=== PATIENT | male | born 1980 | race Caucasian/White ===

== ENCOUNTER 2016-06-28 09:52 | Emergency (ER) | payer BC, MEDICAID ==
[2016-06-28] MEDS ORDERED: IBUPROFEN 600 MG TABLET PO STA (10:36)
[2016-06-28] MEDS ORDERED: oxyCOD/ACETAMIN 5 MG/325 MG TABLET PO STA (10:36)
[2016-06-28] MEDS ORDERED: oxyCOD/ACETAMIN 5 MG/325 MG TABLET PO ONE (11:08)
[2016-06-28] MEDS ORDERED: IBUPROFEN 600 MG TABLET PO ONE (11:09)
== END 2016-06-28 12:00 | disposition home or self-care (01) ==
DX: S93.401A Sprain of unspecified ligament of right ankle, initial encounter (principal); S83.91XA Sprain of unspecified site of right knee, initial encounter; S39.012A Strain of muscle, fascia and tendon of lower back, initial encounter; X50.1XXA Overexertion from prolonged static or awkward postures, initial encounter; W10.9XXA Fall (on) (from) unspecified stairs and steps, initial encounter; F17.200 Nicotine dependence, unspecified, uncomplicated
CPT/HCPCS: 73564; 73610; 99283; 99284; A9270

== ENCOUNTER 2017-01-03 15:18 | Emergency (ER) | payer BC, MEDICAID ==
--- NOTE | 2017-01-03 16:27 | XRAY Preliminary Report ---
Exam: XR Ankle 3 View RT IMPRESSION: Mild lateral ankle soft tissue joint. A few new small calcifications are seen posterior t o the talar calcaneal joint, uncertain etiology. No definite acute fractures are seen. Chronic appear ing findings as above. [facility] SITE ID: [id number]
--- NOTE | 2017-01-03 16:29 | XRAY Report ---
EXAM: RIGHT ANKLE RADIOGRAPHY EXAM DATE: 01/03/2017 04:03 PM. CLINICAL HISTORY: Twisted pain swelling. COMPARISON: Right ankle 06/28/2016. TECHNIQUE: 3 views. FINDINGS: Bones: A few new small calcifications are seen posterior to the talar calcaneal joint, uncertain etio logy. No definite acute fractures are seen. Joints: Normal alignment. No subluxation. Couple of chronic appearing bone fragments seen distal to t he medial malleolus, unchanged. Soft Tissues: Lower leg anterior soft tissue calcifications again noted. See above. Mild lateral ankle soft tissue swelling. IMPRESSION: Mild lateral ankle soft tissue joint. A few new small calcifications are seen posterior t o the talar calcaneal joint, uncertain etiology. No definite acute fractures are seen. Chronic appear ing findings as above. [facility] Referring Provider Line: [phone] SITE ID: [id number]
--- NOTE | 2017-01-03 17:24 | ED Physician Documentation ---
History of Present Illness - Stated complaint Stated Complaint: R LEG INJ - Chief complaint Chief Complaint: Ext Problem - Additonal information Additional information: hx from pt recurrent ankle sprains rolled ankle a month ago still hurts Review of Systems Musculoskeletal: reports: Pain with weight bearing PD PAST MEDICAL HISTORY - Past Medical History Past Medical History: No - Past Surgical History Past Surgical History: Yes - Present Medications Home Medications: Ambulatory Orders Medication Instructions Recorded Confirmed No Known Home Medications [No 01/03/17 01/03/17 Known Home Medications] - Allergies Allergies/Adverse Reactions: Allergies Allergy/AdvReac Type Severity Reaction Status Date / Time No Known Drug Allergies Allergy Verified 01/03/17 15:35 - Social History Does the pt smoke?: Yes Smoking Status: Current every day smoker Does the pt drink ETOH?: No Does the pt have substance abuse?: No - Immunizations Immunizations are current?: Yes PD ED PE NORMAL - Vitals Vital signs reviewed: Yes - Extremities Extremities: Other (R ankle edema, TTP medial > lateral mall, MSV intact, no 5th MT TTP) Results - Vitals Vitals: Vital Signs - 24 hr 01/03/17 15:22 Temperature 36.7 C Heart Rate 98 Respiratory 18 Rate Blood Pressure 123/82 H O2 Saturation 98 Oxygen O2 Source Room air - Rads (name of study) ankle Radiology: See rad report (no acute fx, chronic appearing calcifications could be small prior avulsions) Departure - Departure Disposition: 01 Home, Self Care Clinical Impression: Ankle sprain Qualifiers: Encounter type: initial encounter Involved ligament of ankle: unspecified ligament Laterality: right Qualified Code(s): S93.401A - Sprain of unspecified ligament of right ankle, initial encounter Condition: Good Instructions: ED Sprain Ankle W X Ray Comments: The xray does not show a fracture. There are some old small avulsed pieces of bone from prior injuries - but no new fracture is seen Recommend wearing the HENRIQUE to keep the swelling down, elevating your leg, using the crutches as needed Motrin and tylenol as needed for the pain
[2017-01-03 17:38] VITALS: BP 166/90
== END 2017-01-03 17:44 | disposition home or self-care (01) ==
LOC: ED 15:18
DX: S93.401A Sprain of unspecified ligament of right ankle, initial encounter (principal); X50.1XXA Overexertion from prolonged static or awkward postures, initial encounter; F17.200 Nicotine dependence, unspecified, uncomplicated
CPT/HCPCS: 99283

== ENCOUNTER 2019-08-20 17:48 | Outpatient (CLI) | payer MEDICAID | END 2019-08-20 17:49 | disposition critical access hospital (66) | LOC: EMS 17:48 | PROVIDERS: ATTEND Surgery | DX: R50.9 Fever, unspecified (principal); R52 Pain, unspecified; R06.02 Shortness of breath; R05 Cough | CPT/HCPCS: A0425; A0429; A0999 ==

== ENCOUNTER 2019-08-20 18:08 | Inpatient (IN) | payer BC, MEDICAID ==
[2019-08-20] MEDS ORDERED: SODIUM CHLORIDE 0.9% 1,000 ML IV ONE ×2 (18:31)
[2019-08-20 18:39] LABS: BASOPHILS % (AUTO) 0.5 %; EOSINOPHILS # (AUTO) 0.2 10^3/uL (0.0-0.7); EOSINOPHILS % (AUTO) 3.2 %; HGB - HEMOGLOBIN 16.8 g/dL (14.0-18.0); LYMPHOCYTES # (AUTO) 0.2 10^3/uL (1.5-3.5); LYMPHOCYTES % (AUTO) 3.8 %; MEAN CORPUSCULAR HEMOGLOBIN 31.9 pg (27.0-31.0); MEAN CORPUSCULAR HGB CONC 34.6 g/dL (32.0-36.0); MEAN CORPUSCULAR VOLUME 92.4 fL (80.0-94.0); MEAN PLATELET VOLUME 10.5 fL (7.4-11.4); MONOCYTES # (AUTO) 0.6 10^3/uL (0.0-1.0); MONOCYTES % (AUTO) 9.3 %; NEUTROPHILS % (AUTO) 82.7 %; PLT - PLATELET COUNT 205 10^3/uL (130-450); RED BLOOD COUNT 5.26 10^6/uL (4.70-6.10); RED CELL DISTRIBUTION WIDTH 12.7 % (12.0-15.0)
[2019-08-20] MEDS ORDERED: IPRATROPIUM/ALBUTEROL 3 ML NEB INH STA (18:40)
[2019-08-20 18:42] LABS: INR 1.3 (0.8-1.2); PT - PROTHROMBIN TIME 15.1 secs (9.9-12.6)
[2019-08-20 18:48] LABS: ALBUMIN 4.1 g/dL (3.2-5.5); BILIRUBIN,TOTAL 0.8 mg/dL (0.2-1.0); CALCIUM 8.8 mg/dL (8.5-10.3); CREATININE 0.7 mg/dL (0.6-1.2); TOTAL PROTEIN 8.1 g/dL (6.7-8.2)
[2019-08-20 18:50] LABS: PARTIAL THROMBOPLASTIN TIME 28.6 secs (24.9-33.3)
--- NOTE | 2019-08-20 19:01 | ED Physician Documentation ---
History of Present Illness - Stated complaint Stated Complaint: FEVER, SOA - Chief complaint Chief Complaint: General - History obtained from History obtained from: Patient, EMS - History of Present Illness Timing: How many days ago (4) Pain level max: 7 Pain level now: 7 - Additonal information Additional information: 38-year-old male presents to the emergency department with fevers, body aches coughing and chills. He states he feels short of breath as well. He has a history of heroin and methamphetamine use. States last used a week ago. Nothing makes this better or worse. Has not taken anything for this. Denies any other medical problems. Does not take any medications at home. Review of Systems Ten Systems: 10 systems reviewed and negative Constitutional: reports: Fever, Chills, Myalgias Nose: reports: Rhinorrhea / runny nose Throat: reports: Sore throat Cardiac: denies: Chest pain / pressure Respiratory: reports: Cough Skin: reports: Rash (States developed a body wide rash 3 to 4 days ago as well. States it is not itchy.) Musculoskeletal: denies: Neck pain, Back pain Neurologic: denies: Headache PD PAST MEDICAL HISTORY - Past Medical History Past Medical History: No - Past Surgical History Past Surgical History: Yes - Present Medications Home Medications: Ambulatory Orders Medication Instructions Recorded Confirmed Buprenorphine HCl/Naloxone HCl 0 each SL DAILY 08/20/19 08/20/19 [Suboxone 2-0.5 mg Sl tab] - Allergies Allergies/Adverse Reactions: Allergies Allergy/AdvReac Type Severity Reaction Status Date / Time No Known Drug Allergies Allergy Verified 08/20/19 18:35 - Social History Does the pt smoke?: Yes Smoking Status: Current every day smoker Does the pt drink ETOH?: Yes Does the pt have substance abuse?: No Substance Use and Type: Meth, Heroin - Immunizations Immunizations are current?: Yes PD ED PE NORMAL - Vitals Vital signs reviewed: Yes - General General: Alert and oriented X 3, No acute distress, Well developed/nourished - HEENT HEENT: Ears normal, Moist mucous membranes, Pharynx benign - Neck Neck: Supple, no meningeal sign - Cardiac Cardiac: RRR, Strong equal pulses - Respiratory Respiratory: No respiratory distress, Clear bilaterally - Abdomen Abdomen: Soft, Non tender, Non distended - Back Back: No spinal TTP - Derm Derm: Warm and dry, No rash - Neuro Neuro: Alert and oriented X 3, promotions director 2-12 intact, No motor deficit, No sensory deficit, Normal speech - Psych Psych: Normal mood, Normal affect Results - Vitals Vitals: Vital Signs - 24 hr 08/20/19 08/20/19 08/20/19 18:09 19:21 19:33 Temperature 37.6 C H Heart Rate 123 H 86 95 Respiratory 19 20 19 Rate Blood Pressure 137/101 H 124/83 H O2 Saturation 89 L 95 08/20/19 08/20/19 08/20/19 19:56 20:30 20:32 Temperature 38.5 C H 37.8 C H Heart Rate 96 Respiratory 17 Rate Blood Pressure 129/95 H O2 Saturation 95 08/20/19 08/20/19 21:00 21:54 Temperature 38.1 C H Heart Rate 95 92 Respiratory 18 15 Rate Blood Pressure 133/83 H 116/81 H O2 Saturation 92 97 Oxygen O2 Source Nasal cannula Oxygen Flow Rate 2 - Labs Labs: Laboratory Tests 08/20/19 08/20/19 08/20/19 18:22 18:22 18:22 WBC 6.0 RBC 5.26 Hgb 16.8 Hct 48.6 MCV 92.4 MCH 31.9 H MCHC 34.6 RDW 12.7 Plt Count 205 MPV 10.5 Neut # (Auto) 5.0 Lymph # (Auto) 0.2 L Mora # (Auto) 0.6 Eos # (Auto) 0.2 Baso # (Auto) 0.0 Absolute Nucleated RBC 0.00 Nucleated RBC % 0.0 PT 15.1 H INR 1.3 H APTT 28.6 Sodium 132 L Potassium 4.1 Chloride 95 L Carbon Dioxide 26 Anion Gap 11.0 BUN 13 Creatinine 0.7 Estimated GFR (MDRD) 126 Glucose 139 H Lactic Acid Calcium 8.8 Total Bilirubin 0.8 AST 24 ALT 38 Alkaline Phosphatase 52 Total Protein 8.1 Albumin 4.1 Globulin 4.0 Albumin/Globulin Ratio 1.0 Lipase 19 L Influenza A (Rapid) Influenza B (Rapid) 08/20/19 08/20/19 18:40 19:15 WBC RBC Hgb Hct MCV MCH MCHC RDW Plt Count MPV Neut # (Auto) Lymph # (Auto) Mora # (Auto) Eos # (Auto) Baso # (Auto) Absolute Nucleated RBC Nucleated RBC % PT INR APTT Sodium Potassium Chloride Carbon Dioxide Anion Gap BUN Creatinine Estimated GFR (MDRD) Glucose Lactic Acid 2.3 H Calcium Total Bilirubin AST ALT Alkaline Phosphatase Total Protein Albumin Globulin Albumin/Globulin Ratio Lipase Influenza A (Rapid) Negative Influenza B (Rapid) Negative - Rads (name of study) cxr Radiology: Prelim report reviewed, EMP read contemporaneously, See rad report (no acute disease) PD MEDICAL DECISION MAKING - ED course Complexity details: reviewed results, re-evaluated patient, considered differential, d/w patient, d/w marine consultant ED course: Chest x-ray is read as no acute disease by radiology, however looks like multi focal infiltrates versus potential early ARDS. Concern for possible coronavirus. He is also septic. Influenza screens are negative. Coronavirus testing sent. Given cefepime and vancomycin. IV fluids given, 30 mill per kilo bolus. Discussed the case with Dr. May, hospitalist who accepts This document was made in part using voice recognition software. While efforts are made to proofread this document, sound alike and grammatical errors may occur. Patient did improve with albuterol as well. Still remains hypoxic and requiring supplemental oxygen. Departure - Departure Disposition: 66 [facility] DC/Xfer Clinical Impression: Hypoxia, Multifocal pneumonia Fever Qualifiers: Fever type: unspecified Qualified Code(s): R50.9 - Fever, unspecified Sepsis Qualifiers: Sepsis type: sepsis due to unspecified organism Sepsis acute organ dysfunction status: unspecified Qualified Code(s): A41.9 - Sepsis, unspecified organism Condition: Stable
[2019-08-20] MEDS ORDERED: SODIUM CHLORIDE 0.9% 2,449.41 ML IV STA (19:33)
[2019-08-20] MEDS ORDERED: CEFEPIME 2 GM in SODIUM CHLORIDE 0.9% MINIBAG 100 ML IV STA (19:33)
[2019-08-20] MEDS ORDERED: VANCOMYCIN INJ 2 GM in SODIUM CHLORIDE 0.9% 500 ML IV STA (19:33)
[2019-08-20] MEDS ORDERED: ACETAMINOPHEN 325 MG TABLET PO STA (20:01)
--- NOTE | 2019-08-20 20:09 | XRAY Report ---
Reason: fever, cough Procedure Date: 08/20/2019 Accession Number: [id number] / [id number] Procedure: XR - Chest 1 View X-Ray CPT Code: 75131 Final Report FULL RESULT: EXAM: CHEST RADIOGRAPHY EXAM DATE: 08/20/2019 06:41 PM. CLINICAL HISTORY: Fever, cough. COMPARISON: None. TECHNIQUE: 1 view. FINDINGS: Suboptimal positioning. Lungs/Pleura: No focal consolidation. No pleural effusion. No pneumothorax. Mediastinum: Within exam limitations, the cardiomediastinal contour is normal. Other: ECG leads overlie the chest. IMPRESSION: No acute findings. [facility]
[2019-08-20] MEDS ORDERED: WATER FOR INJECTION,STERILE 40 ML ONE (20:13)
[2019-08-20] MEDS ORDERED: SODIUM CHLORIDE FLUSH 0.9% 10 ML SYRINGE IVP PRN (21:24)
[2019-08-20] MEDS ORDERED: ACETAMINOPHEN 325 MG TABLET PO PRN (21:24)
[2019-08-20] MEDS ORDERED: IPRATROPIUM/ALBUTEROL 3 ML NEB INH PRN (21:35)
--- NOTE | 2019-08-20 21:35 | HISTORY & PHYSICAL EXAMINATION ---
Chief Complaint - Chief Complaint Chief Complaint: dyspnea, hypoxia, generalized body ache and rash History of Present Illness - Admitted From Admitted From:: [facility] ED - History Obtained From Records Reviewed: yes History obtained from: patient - History of Present Illness HPI Comment/Other: Patient is a 38 y/o male with history of heroin and methamphetamine use who presented to the ED with dyspnea, a productive cough and generalized bodyache. H is symptoms started 3 days ago. He finally came in because the bodyache and dyspnea was unbearable. He was around his nephew who has been sick with a viral infection lately. He also recently travel to [place] 2-3 weeks ago. When he presented to the ED he had an oxygen saturation of 86% on room air and he was febrile. Chest xray done in the ED was concerning for multi-focal pneumonia. As a result, he was presented for admission. At bedside he complained of generalized bodyache. There is a significant collection of thick yellowish white sputum i the emesis bag at his side. He has extensive urticaria/rash all over his body which is pruritic. It started 2 days ago. He denies any new detergent, lotion or medication. He took over the counter Vitamin B12 and C. he last used heroin or methamphetamine 3 days ago. he normally smokes it. He obtained it from the same person he normally gets it f rom. On auscultation of his lungs, there is no significant/ appreciable wheeze. History - Past Medical History MRSA Hx?: No Other Past Medical History: Heroin and methamphetamine abuse (smokes) - Past Surgical History Other past surgical history: Meniscus repair - Family & Social History Family History Comment/Other: His father from cancer. His 6 year old son recently from an inoperable brain tumor Living arrangement: At home Social History Notes: He lives at home with his mother. He vapes, drink alcohol occaionally and uses methamphetamine and heroin by smoking them. - POLST Patient has POLST: No POLST Status: Full Code Meds/Allgy - Home Medications Home Medications: Ambulatory Orders Medication Instructions Recorded Confirmed Buprenorphine HCl/Naloxone HCl 0 each SL DAILY 08/20/19 08/20/19 [Suboxone 2-0.5 mg Sl tab] - Allergies Allergies/Adverse Reactions: Allergies Allergy/AdvReac Type Severity Reaction Status Date / Time No Known Drug Allergies Allergy Verified 08/20/19 18:35 Review of Systems - Constitutional Constitutional: reports: Fever, Malaise - Eyes Eyes: denies: Pain, Vision loss - Ears, Nose & Throat Ears, Nose & Throat: denies: Tinnitus, Vertigo, Sore throat - Cardiovascular Cariovascular: denies: Chest pain, Edema, Lightheadedness, Syncope, Exertional dyspnea - Respiratory Respiratory: reports: Cough, Sputum production, SOB at rest. denies: Wheezing - Gastrointestinal Gastrointestinal: denies: Abdominal pain, Abdominal distention, Constipation, Nausea, Vomiting, Reflux/heartburn - Genitourinary Genitourinary: denies: Dysuria, Frequency, Urgency, Hematuria - Musculoskeletal Musculoskeletal: reports: Back pain - Integumentary Integumentary: reports: Rash, Pruritis. denies: Lesions - Neurological Neurological: denies: General weakness, Focal weakness, Dizziness - Psychiatric Psychiatric: denies: Depression, Anxiety - Endocrine Endocrine: denies: Polyuria, Polydypsia - Hematologic/Lymphatic Hematologic/Lymphatic: denies: Anemia, Bruising Prior Level of Functionality: He is independent of activities of daily living. Exam - Vital Signs Vital Signs: Vital Signs x48h Temp Pulse Resp BP Pulse Ox 08/20/19 21:00 95 18 133/83 H 92 08/20/19 20:32 37.8 C H 08/20/19 20:30 96 17 129/95 H 95 08/20/19 19:56 38.5 C H 08/20/19 19:33 95 19 124/83 H 95 08/20/19 19:21 86 20 08/20/19 18:09 37.6 C H 123 H 19 137/101 H 89 L - Physical Exam General Appearance: positive: Alert, Mild distress, Moderate distress Eyes Bilateral: positive: PERRL, EOMI ENT: positive: No signs of dehydration Neck: positive: No JVD, Trachea midline Respiratory: positive: Chest non-tender. negative: No respiratory distress, Breath sounds nml, Wheezes, Rales, Rhonchi Cardiovascular: positive: Regular rate & rhythm, No murmur Abdomen: positive: Non-tender, No organomegaly, Nml bowel sounds, No distention. negative: Guarding, Rebound Back: positive: Nml inspection Skin: positive: Warm, Skin rash Extremities: positive: Non-tender, Full ROM, Nml appearance, No pedal edema Neurologic/Psychiatric: positive: Oriented x3, Mood/affect nml Conclusion/Plan - Problem List (1) Multifocal pneumonia Conclusion/Plan: Patient started on vancomycin and cefepime. Azithromycin added for atypical coverage Blood cultures pending Patient on supplemental oxygen Duoneb prn Tylenol prn for fever COVID-19 serology collected and sent out (2) Acute respiratory failure with hypoxia Conclusion/Plan: 2/2 pneumonia vs ?methamphetamine and heroin use. ?Talc (patient smokes the drugs) Patient on empiric antibiotics with vancomycin, cefepime and azithromycin Supplemental oxygen. Duoneb breathing treatments. (3) Drug abuse Conclusion/Plan: Methamphetamine and heroin He uses by smoking them. MUDDS pending Last use was 3 days ago (4) Allergic dermatitis Conclusion/Plan: Etiology undetermined Will order benadryl prn - Lab Results Fish Bones: 08/20/19 18:22 08/20/19 18:22 Core Measures - Anticipated LOS I expect patient to be DC'd or transferred within 96 hours.: Yes - DVT/VTE - Prophylaxis VTE/DVT Device ordered at admit?: Yes VTE/DVT Prophylaxis med ordered at admit?: Yes
[2019-08-20] MEDS ORDERED: VANCOMYCIN PER PHARMACY 100 GM in SODIUM CHLORIDE 0.9% 250 ML IV SCH (22:00)
[2019-08-20] MEDS: AZITHROMYCIN 250 MG TABLET PO SCH (22:17)
[2019-08-20] MEDS: SODIUM CHLORIDE 0.9% 1,000 ML IV SCH (22:46)
[2019-08-20] MEDS ORDERED: diphenhydrAMINE INJ 50 MG/ML VIAL IVP STA (23:06)
[2019-08-20] MEDS: SODIUM CHLORIDE FLUSH 0.9% 10 ML SYRINGE IVP SCH (23:53)
[2019-08-21 01:32] LABS: MUDS CUTOFF CONCENTRATIONS CUTOFF CONC BELOW:
[2019-08-21 01:38] LABS: BILIRUBIN,URINE NEGATIVE (NEGATIVE); GLUCOSE, URINE (UA) NEGATIVE (NEGATIVE); KETONES,URINE (UA) NEGATIVE (NEGATIVE); LEUKOCYTE ESTERASE, URINE NEGATIVE (NEGATIVE); NITRITE,URINE NEGATIVE (NEGATIVE); OCCULT BLOOD,URINE NEGATIVE (NEGATIVE); PROTEIN,URINE 100 mg/dL (NEGATIVE); UROBILINOGEN,URINE 1 (NORMAL) E.U./dL (NORMAL)
[2019-08-21 01:48] LABS: BACTERIA,URINE None Seen /HPF (None Seen); CLARITY,URINE CLEAR (CLEAR); RBC,URINE 0-5 /HPF (0-5); SQUAMOUS EPITHELIAL CELL,UR RARE Squamous (<= Few)
[2019-08-21 01:49] LABS: AMPHETAMINE SCREEN,URINE POSITIVE (NEGATIVE); BENZODIAZEPINES SCREEN, URINE NEGATIVE (NEGATIVE); COCAINE SCREEN URINE NEGATIVE (NEGATIVE); METHADONE SCREEN, URINE NEGATIVE (NEGATIVE); METHAMPHETAMINES SCREEN, URINE POSITIVE (NEGATIVE); OPIATE SCREEN, URINE POSITIVE (NEGATIVE); OXYCODONE SCREEN, URINE NEGATIVE (NEGATIVE); PROPOXYPHENE SCREEN, URINE NEGATIVE (NEGATIVE); TRICYCLIC ANTIDEPRESSANT,URINE NEGATIVE (NEGATIVE)
[2019-08-21] MEDS: diphenhydrAMINE 25 MG CAPSULE PO PRN ×3 (04:56→21:38)
[2019-08-21] MEDS: ACETAMINOPHEN 325 MG TABLET PO PRN ×3 (04:57→21:38)
[2019-08-21 06:09] LABS: BASOPHILS % (AUTO) 0.5 %; HGB - HEMOGLOBIN 13.6 g/dL (14.0-18.0); LYMPHOCYTES % (AUTO) 7.7 %; MEAN CORPUSCULAR HEMOGLOBIN 31.9 pg (27.0-31.0); MEAN CORPUSCULAR HGB CONC 34.3 g/dL (32.0-36.0); MEAN PLATELET VOLUME 10.5 fL (7.4-11.4); MONOCYTES % (AUTO) 12.5 %; PLT - PLATELET COUNT 177 10^3/uL (130-450); RED BLOOD COUNT 4.26 10^6/uL (4.70-6.10); RED CELL DISTRIBUTION WIDTH 12.5 % (12.0-15.0); WHITE BLOOD COUNT 5.9 x10^3/uL (4.8-10.8)
[2019-08-21 06:19] LABS: CALCIUM 7.9 mg/dL (8.5-10.3); CREATININE 0.6 mg/dL (0.6-1.2)
[2019-08-21 06:33] LABS: ABNORMAL LYMPHS % (MANUAL) 1 %; BAND NEUTROPHILS % (MANUAL) 20 %; LYMPHOCYTES # (MANUAL) 0.4 10^3/uL (1.5-3.5); LYMPHOCYTES % (MANUAL) 6 %; MONOCYTES # (MANUAL) 0.8 10^3/uL (0.0-1.0)
[2019-08-21 06:34] LABS: RBC MORPHOLOGY (MULTIPLE) NORMAL APPEARANCE (NORMAL)
[2019-08-21 06:35] LABS: DIFFERENTIAL COMMENT MANUAL DIFFERENTIAL; PLATELET ESTIMATE, MANUAL NORMAL (130-450,000) (NORMAL); PLATELET MORPHOLOGY NORMAL APPEARANCE (NORMAL)
[2019-08-21] MEDS ORDERED: VANCOMYCIN INJ 1.5 GM in SODIUM CHLORIDE 0.9% 500 ML IV SCH (08:00)
[2019-08-21] MEDS: ENOXAPARIN 40 MG/0.4 ML SYRINGE SUBQ SCH (09:41)
[2019-08-21] MEDS: SODIUM CHLORIDE 0.9% 1,000 ML IV SCH ×2 (09:41→21:41)
[2019-08-21] MEDS: SODIUM CHLORIDE FLUSH 0.9% 10 ML SYRINGE IVP SCH ×3 (09:41→23:42)
[2019-08-21] MEDS: CEFEPIME 2 GM in SODIUM CHLORIDE 0.9% MINIBAG 100 ML IV SCH ×2 (09:41→21:37)
[2019-08-21] MEDS: polyethylene glycoL 3350 17 GM PACKET PO SCH (09:41)
[2019-08-21] MEDS: VANCOMYCIN INJ 1 GM in SODIUM CHLORIDE 0.9% 250 ML IV SCH ×2 (11:00→19:03)
--- NOTE | 2019-08-21 11:37 | PHARMACY PROGRESS NOTE ---
- Best Possible Medication History Admit Date and Time: 08/20/192123 Processed by: Nursing Medication History completed: Yes Patient Interview: Completed Secondary Source(s): Pharmacy records As the person ultimately responsible for medication therapy, providers are able to order a medication from an existing home medication list in [facility] via the "Reconcile Routine" prior to Confirmation of that medication by client support associate. Such practice is discouraged except when the physician, in their clinical judgment, deems that a medical need exists for a medication without regard to previous use.
--- NOTE | 2019-08-21 11:39 | PHARMACY PROGRESS NOTE ---
- Therapy Status Vancomycin regimen day #: 1 Therapy status: Awaiting steady state Basis for treatment: Empirical Treatment indication: Pneumonia with history of drug abuse Trough goal: 15-20 Concurrent antibiotics: Cefepime and Azithromycin - MAGGY Risk Risk level for Acute Kidney Injury: Low Acute Kidney Injury risk factors: Goal trough >15 - Monitoring and Recommendation Clinical response to treatment: I&O Previous 24 hours 08/19/19 08/20/19 08/21/19 23:59 23:59 23:59 Intake Total 1752.5 1651.667 Output Total 575 Balance 1752.5 1076.667 Lab Results 08/21/19 08/20/19 06:00 18:22 BUN 13 13 Creatinine 0.6 0.7 Estimated GFR (MDRD) 150 126 Monitoring plan: Daily serum creatinine
--- NOTE | 2019-08-21 15:28 | PROVIDER PROGRESS NOTE ---
Subjective - Prog Note Date Prog Note Date: 08/21/19 Prog Note Time: 15:30 - Subjective Pt reports feeling: No change Subjective: He is very sleepy, tired. Wants to stay in bed. Complaining of right flank ache. Ate 25% of breakfast and nothing of lunch. His rash is no worse. Intermittently confused. Current Medications - Current Medications Current Medications: Active Medications Acetaminophen (Tylenol) 650 mg PO Q4HR PRN PRN Reason: Pain 1 to 4 Last Admin: 08/21/19 04:57 Dose: 650 mg Albuterol/Ipratropium (Duoneb) 3 ml INH Q4HR PRN PRN Reason: Wheezing Last Admin: 08/21/19 04:50 Dose: 3 ml Azithromycin (Zithromax) 500 mg PO Q24H [facility] Stop: 08/22/19 22:01 Last Admin: 08/20/19 22:17 Dose: 500 mg Diphenhydramine HCl (Benadryl) 25 mg PO Q4HR PRN PRN Reason: Allergy Symptoms Last Admin: 08/21/19 04:56 Dose: 25 mg Enoxaparin Sodium (Lovenox) 40 mg SUBQ DAILY [facility] Last Admin: 08/21/19 09:41 Dose: 40 mg Sodium Chloride (Normal Saline 0.9%) 1,000 mls @ 100 mls/hr IV .Q10H [facility] Last Infusion: 08/21/19 12:30 Dose: 100 mls/hr Cefepime HCl 2 gm/ Sodium (Chloride) 100 mls @ 200 mls/hr IV BID [facility] Last Infusion: 08/21/19 10:11 Dose: Infused Vancomycin HCl 1 gm/ Sodium (Chloride) 250 mls @ 167 mls/hr IV Q8H [facility] Last Infusion: 08/21/19 12:30 Dose: Infused Polyethylene Glycol (Miralax) 17 gm PO DAILY [facility] Last Admin: 08/21/19 09:41 Dose: 17 gm Sodium Chloride (Normal Saline Flush 0.9%) 10 ml IVP PRN PRN PRN Reason: NEEDED PER PROVIDER ORDERS Sodium Chloride (Normal Saline Flush 0.9%) 10 ml IVP 0100,0900,1700 [facility] Last Admin: 08/21/19 09:41 Dose: 10 ml Buprenorphine HCl/Naloxone HCl [Suboxone 2-0.5 mg Sl tab] 2.5 each SL DAILY 08/20/19 Objective - Vital Signs/Intake & Output Reviewed Vital Signs: Yes Vital Signs: Vital Signs x48h Temp Pulse Resp BP Pulse Ox 08/21/19 12:13 37.0 C 106 H 24 120/76 91 L 08/21/19 07:41 37.3 C 87 22 108/57 L 92 Intake & Output: Intake & Output 08/18/19 08/19/19 08/20/19 08/21/19 23:59 23:59 23:59 23:59 Intake Total 1752.5 1901.667 Output Total 575 Balance 1752.5 1326.667 - Objective General Appearance: positive: Lethargic (Sleeping most of the morning in the afternoon when I have seen him twice. But does wake up to voice. It takes a few moments to have to orient himself.) Eyes Bilateral: positive: PERRL ENT: negative: Pharyngeal erythema Neck: positive: No JVD. negative: Stiff neck, Carotid bruit Respiratory: positive: Chest non-tender, No respiratory distress, Rales (Fine crackles diffusely. Seemed to clear temporarily with a deep cough but then they return) Cardiovascular: positive: Regular rate & rhythm, No murmur. negative: Gallop/S4, Friction rub Abdomen: positive: Non-tender, No organomegaly, Nml bowel sounds, No distention Extremities: positive: No pedal edema Neurologic/Psychiatric: positive: CN's nml (2-12), Motor nml, Disoriented to time, Weakness - Lab Results Fish Bones: 08/21/19 06:00 08/21/19 06:00 Other Labs: Lab Results x24hrs 08/21/19 08/21/19 08/21/19 Range/Units 06:00 06:00 01:30 WBC 5.9 (4.8-10.8) x10^3/uL RBC 4.26 L (4.70-6.10) 10^6/uL Hgb 13.6 L (14.0-18.0) g/dL Hct 39.6 L (42.0-52.0) % MCV 93.0 (80.0-94.0) fL MCH 31.9 H (27.0-31.0) pg MCHC 34.3 (32.0-36.0) g/dL RDW 12.5 (12.0-15.0) % Plt Count 177 (130-450) 10^3/uL MPV 10.5 (7.4-11.4) fL Neut # (Auto) Not Reportable (1.5-6.6) 10^3/uL Lymph # (Auto) Not Reportable (1.5-3.5) 10^3/uL [place] # (Auto) Not Reportable (0.0-1.0) 10^3/uL Eos # (Auto) Not Reportable (0.0-0.7) 10^3/uL Baso # (Auto) Not Reportable (0.0-0.1) 10^3/uL Absolute Nucleated RBC Not Reportable x10^3/uL Total Counted 100 Band Neuts % (Manual) 20 H (0 - 10) % Abnorm Lymph % (Manual) 1 % Nucleated RBC % Not Reportable /100WBC Neutrophils # (Manual) 4.7 (1.5-6.6) 10^3/uL Lymphocytes # (Manual) 0.4 L (1.5-3.5) 10^3/uL Monocytes # (Manual) 0.8 (0.0-1.0) 10^3/uL Eosinophils # (Manual) 0.0 (0-0.7) 10^3/uL Basophils # (Manual) 0.0 (0-0.1) 10^3/uL Differential Comment MANUAL DIFFERENTIAL WBC Morphology NORMAL APPEARANCE (NORMAL) Platelet Estimate NORMAL (130-450,000) (NORMAL) Platelet Morphology NORMAL APPEARANCE (NORMAL) RBC Morph Micro Appear NORMAL APPEARANCE (NORMAL) PT (9.9-12.6) secs INR (0.8-1.2) APTT (24.9-33.3) secs Sodium 133 L (135-145) mmol/L Potassium 3.8 (3.5-5.0) mmol/L Chloride 100 L (101-111) mmol/L Carbon Dioxide 24 (21-32) mmol/L Anion Gap 9.0 (6-13) BUN 13 (6-20) mg/dL Creatinine 0.6 (0.6-1.2) mg/dL Estimated GFR (MDRD) 150 (>89) Glucose 126 H (70-100) mg/dL Lactic Acid (0.5-2.2) mmol/L Calcium 7.9 L (8.5-10.3) mg/dL Total Bilirubin (0.2-1.0) mg/dL AST (10-42) IU/L ALT (10-60) IU/L Alkaline Phosphatase (42-121) IU/L Total Protein (6.7-8.2) g/dL Albumin (3.2-5.5) g/dL Globulin (2.1-4.2) g/dL Albumin/Globulin Ratio (1.0-2.2) Lipase (22-51) U/L Urine Color YELLOW Urine Clarity CLEAR (CLEAR) Urine pH 6.0 (5.0-7.5) PH Ur Specific [place] >=1.030 H (1.002-1.030) Urine Protein 100 H (NEGATIVE) mg/dL Urine Glucose (UA) NEGATIVE (NEGATIVE) mg/dL Urine Ketones NEGATIVE (NEGATIVE) mg/dL Urine Occult Blood NEGATIVE (NEGATIVE) Urine Nitrite NEGATIVE (NEGATIVE) Urine Bilirubin NEGATIVE (NEGATIVE) Urine Urobilinogen 1 (NORMAL) (NORMAL) E.U./dL Ur Leukocyte Esterase NEGATIVE (NEGATIVE) Urine RBC 0-5 (0-5) /HPF Urine WBC 0-3 (0-3) /HPF Ur Squamous Epith Cells RARE Squamous (<= Few) Urine Bacteria None Seen (None Seen) /HPF Ur Microscopic Review INDICATED Urine Culture Comments NOT INDICATED Urine Opiates Screen POSITIVE H (NEGATIVE) Ur Oxycodone Screen NEGATIVE (NEGATIVE) Urine Methadone Screen NEGATIVE (NEGATIVE) Ur Propoxyphene Screen NEGATIVE (NEGATIVE) Ur Barbiturates Screen NEGATIVE (NEGATIVE) Ur Tricyclics Screen NEGATIVE (NEGATIVE) Ur Phencyclidine Scrn NEGATIVE (NEGATIVE) Ur Amphetamine Screen POSITIVE H (NEGATIVE) U Methamphetamines Scrn POSITIVE H (NEGATIVE) U Benzodiazepines Scrn NEGATIVE (NEGATIVE) Urine Cocaine Screen NEGATIVE (NEGATIVE) U Cannabinoids Screen NEGATIVE (NEGATIVE) Influenza A (Rapid) (Negative) Influenza B (Rapid) (Negative) 08/20/19 08/20/19 08/20/19 Range/Units 21:55 19:15 18:40 WBC (4.8-10.8) x10^3/uL RBC (4.70-6.10) 10^6/uL Hgb (14.0-18.0) g/dL Hct (42.0-52.0) % MCV (80.0-94.0) fL MCH (27.0-31.0) pg MCHC (32.0-36.0) g/dL RDW (12.0-15.0) % Plt Count (130-450) 10^3/uL MPV (7.4-11.4) fL Neut # (Auto) (1.5-6.6) 10^3/uL Lymph # (Auto) (1.5-3.5) 10^3/uL [place] # (Auto) (0.0-1.0) 10^3/uL Eos # (Auto) (0.0-0.7) 10^3/uL Baso # (Auto) (0.0-0.1) 10^3/uL Absolute Nucleated RBC x10^3/uL Total Counted Band Neuts % (Manual) (0 - 10) % Abnorm Lymph % (Manual) % Nucleated RBC % /100WBC Neutrophils # (Manual) (1.5-6.6) 10^3/uL Lymphocytes # (Manual) (1.5-3.5) 10^3/uL Monocytes # (Manual) (0.0-1.0) 10^3/uL Eosinophils # (Manual) (0-0.7) 10^3/uL Basophils # (Manual) (0-0.1) 10^3/uL Differential Comment WBC Morphology (NORMAL) Platelet Estimate (NORMAL) Platelet Morphology (NORMAL) RBC Morph Micro Appear (NORMAL) PT (9.9-12.6) secs INR (0.8-1.2) APTT (24.9-33.3) secs Sodium (135-145) mmol/L Potassium (3.5-5.0) mmol/L Chloride (101-111) mmol/L Carbon Dioxide (21-32) mmol/L Anion Gap (6-13) BUN (6-20) mg/dL Creatinine (0.6-1.2) mg/dL Estimated GFR (MDRD) (>89) Glucose (70-100) mg/dL Lactic Acid 1.7 2.3 H (0.5-2.2) mmol/L Calcium (8.5-10.3) mg/dL Total Bilirubin (0.2-1.0) mg/dL AST (10-42) IU/L ALT (10-60) IU/L Alkaline Phosphatase (42-121) IU/L Total Protein (6.7-8.2) g/dL Albumin (3.2-5.5) g/dL Globulin (2.1-4.2) g/dL Albumin/Globulin Ratio (1.0-2.2) Lipase (22-51) U/L Urine Color Urine Clarity (CLEAR) Urine pH (5.0-7.5) PH Ur Specific [place] (1.002-1.030) Urine Protein (NEGATIVE) mg/dL Urine Glucose (UA) (NEGATIVE) mg/dL Urine Ketones (NEGATIVE) mg/dL Urine Occult Blood (NEGATIVE) Urine Nitrite (NEGATIVE) Urine Bilirubin (NEGATIVE) Urine Urobilinogen (NORMAL) E.U./dL Ur Leukocyte Esterase (NEGATIVE) Urine RBC (0-5) /HPF Urine WBC (0-3) /HPF Ur Squamous Epith Cells (<= Few) Urine Bacteria (None Seen) /HPF Ur Microscopic Review Urine Culture Comments Urine Opiates Screen (NEGATIVE) Ur Oxycodone Screen (NEGATIVE) Urine Methadone Screen (NEGATIVE) Ur Propoxyphene Screen (NEGATIVE) Ur Barbiturates Screen (NEGATIVE) Ur Tricyclics Screen (NEGATIVE) Ur Phencyclidine Scrn (NEGATIVE) Ur Amphetamine Screen (NEGATIVE) U Methamphetamines Scrn (NEGATIVE) U Benzodiazepines Scrn (NEGATIVE) Urine Cocaine Screen (NEGATIVE) U Cannabinoids Screen (NEGATIVE) Influenza A (Rapid) Negative (Negative) Influenza B (Rapid) Negative (Negative) 08/20/19 08/20/19 08/20/19 Range/Units 18:22 18:22 18:22 WBC 6.0 (4.8-10.8) x10^3/uL RBC 5.26 (4.70-6.10) 10^6/uL Hgb 16.8 (14.0-18.0) g/dL Hct 48.6 (42.0-52.0) % MCV 92.4 (80.0-94.0) fL MCH 31.9 H (27.0-31.0) pg MCHC 34.6 (32.0-36.0) g/dL RDW 12.7 (12.0-15.0) % Plt Count 205 (130-450) 10^3/uL MPV 10.5 (7.4-11.4) fL Neut # (Auto) 5.0 (1.5-6.6) 10^3/uL Lymph # (Auto) 0.2 L (1.5-3.5) 10^3/uL [place] # (Auto) 0.6 (0.0-1.0) 10^3/uL Eos # (Auto) 0.2 (0.0-0.7) 10^3/uL Baso # (Auto) 0.0 (0.0-0.1) 10^3/uL Absolute Nucleated RBC 0.00 x10^3/uL Total Counted Band Neuts % (Manual) (0 - 10) % Abnorm Lymph % (Manual) % Nucleated RBC % 0.0 /100WBC Neutrophils # (Manual) (1.5-6.6) 10^3/uL Lymphocytes # (Manual) (1.5-3.5) 10^3/uL Monocytes # (Manual) (0.0-1.0) 10^3/uL Eosinophils # (Manual) (0-0.7) 10^3/uL Basophils # (Manual) (0-0.1) 10^3/uL Differential Comment WBC Morphology (NORMAL) Platelet Estimate (NORMAL) Platelet Morphology (NORMAL) RBC Morph Micro Appear (NORMAL) PT 15.1 H (9.9-12.6) secs INR 1.3 H (0.8-1.2) APTT 28.6 (24.9-33.3) secs Sodium 132 L (135-145) mmol/L Potassium 4.1 (3.5-5.0) mmol/L Chloride 95 L (101-111) mmol/L Carbon Dioxide 26 (21-32) mmol/L Anion Gap 11.0 (6-13) BUN 13 (6-20) mg/dL Creatinine 0.7 (0.6-1.2) mg/dL Estimated GFR (MDRD) 126 (>89) Glucose 139 H (70-100) mg/dL Lactic Acid (0.5-2.2) mmol/L Calcium 8.8 (8.5-10.3) mg/dL Total Bilirubin 0.8 (0.2-1.0) mg/dL AST 24 (10-42) IU/L ALT 38 (10-60) IU/L Alkaline Phosphatase 52 (42-121) IU/L Total Protein 8.1 (6.7-8.2) g/dL Albumin 4.1 (3.2-5.5) g/dL Globulin 4.0 (2.1-4.2) g/dL Albumin/Globulin Ratio 1.0 (1.0-2.2) Lipase 19 L (22-51) U/L Urine Color Urine Clarity (CLEAR) Urine pH (5.0-7.5) PH Ur Specific [place] (1.002-1.030) Urine Protein (NEGATIVE) mg/dL Urine Glucose (UA) (NEGATIVE) mg/dL Urine Ketones (NEGATIVE) mg/dL Urine Occult Blood (NEGATIVE) Urine Nitrite (NEGATIVE) Urine Bilirubin (NEGATIVE) Urine Urobilinogen (NORMAL) E.U./dL Ur Leukocyte Esterase (NEGATIVE) Urine RBC (0-5) /HPF Urine WBC (0-3) /HPF Ur Squamous Epith Cells (<= Few) Urine Bacteria (None Seen) /HPF Ur Microscopic Review Urine Culture Comments Urine Opiates Screen (NEGATIVE) Ur Oxycodone Screen (NEGATIVE) Urine Methadone Screen (NEGATIVE) Ur Propoxyphene Screen (NEGATIVE) Ur Barbiturates Screen (NEGATIVE) Ur Tricyclics Screen (NEGATIVE) Ur Phencyclidine Scrn (NEGATIVE) Ur Amphetamine Screen (NEGATIVE) U Methamphetamines Scrn (NEGATIVE) U Benzodiazepines Scrn (NEGATIVE) Urine Cocaine Screen (NEGATIVE) U Cannabinoids Screen (NEGATIVE) Influenza A (Rapid) (Negative) Influenza B (Rapid) (Negative) ABX Reporting Has patient been on IV antibiotics over the past 48 hours?: Yes Assessment/Plan - Problem List (1) Multifocal pneumonia Impression: He presents as a history of heroin and methamphetamine abuse that is now complicated by shortness of breath, a productive cough, and generalized body aches. All of this started 3 days ago. He traveled to [place] 2 to 3 weeks ago, and has a nephew who is been sick with a viral infection. In the emergency room he is hypoxic at 86% on room air, febrile, and chest x-ray shows multifocal pneumonia. He does meet Covid 19 criteria and has been tested but results are pending. Patient started on vancomycin and cefepime. Day #1 Azithromycin added for atypical coverage Blood cultures pending Patient on supplemental oxygen Duoneb prn Tylenol prn for fever COVID-19 serology collected and sent out (2) Acute respiratory failure with hypoxia Conclusion/Plan: 2/2 pneumonia vs ?methamphetamine and heroin use. ?Talc (patient smokes the drugs) Patient on empiric antibiotics with vancomycin, cefepime and azithromycin Supplemental oxygen. Duoneb breathing treatments. So far still on same 2 liters/minute (3) Drug abuse Conclusion/Plan: Methamphetamine and heroin He uses by smoking them. MUDDS Positive for opiates, amphetamines, methamphetamines. Last use was 3 days ago (4) Allergic dermatitis Conclusion/Plan: Etiology undetermined Will order benadryl prn We are avoiding steroids since those are contraindicated in Covid 19
[2019-08-21] MEDS: AZITHROMYCIN 250 MG TABLET PO SCH (21:38)
[2019-08-22] MEDS: VANCOMYCIN INJ 1 GM in SODIUM CHLORIDE 0.9% 250 ML IV SCH ×3 (03:09→18:31)
[2019-08-22] MEDS: ACETAMINOPHEN 325 MG TABLET PO PRN ×2 (03:10→18:38)
[2019-08-22] MEDS: diphenhydrAMINE 25 MG CAPSULE PO PRN (03:10)
[2019-08-22 05:43] LABS: CALCIUM 7.8 mg/dL (8.5-10.3); CREATININE 0.5 mg/dL (0.6-1.2)
[2019-08-22 05:52] LABS: BASOPHILS % (AUTO) 0.4 %; EOSINOPHILS % (AUTO) 0.9 %; HGB - HEMOGLOBIN 13.5 g/dL (14.0-18.0); LYMPHOCYTES % (AUTO) 17.6 %; MEAN CORPUSCULAR HEMOGLOBIN 31.6 pg (27.0-31.0); MEAN CORPUSCULAR HGB CONC 33.6 g/dL (32.0-36.0); MEAN CORPUSCULAR VOLUME 94.1 fL (80.0-94.0); MEAN PLATELET VOLUME 11.1 fL (7.4-11.4); MONOCYTES % (AUTO) 7.2 %; NEUTROPHILS % (AUTO) 73.5 %; PLT - PLATELET COUNT 208 10^3/uL (130-450); RED BLOOD COUNT 4.27 10^6/uL (4.70-6.10); RED CELL DISTRIBUTION WIDTH 12.5 % (12.0-15.0)
[2019-08-22 05:56] LABS: ABNORMAL LYMPHS % (MANUAL) 0 %
[2019-08-22 06:32] LABS: BAND NEUTROPHILS % (MANUAL) 8 %; DIFFERENTIAL COMMENT MANUAL DIFFERENTIAL; LYMPHOCYTES # (MANUAL) 1.2 10^3/uL (1.5-3.5); LYMPHOCYTES % (MANUAL) 17 %; METAMYELOCYTES % (MANUAL) 1 %; MONOCYTES # (MANUAL) 0.3 10^3/uL (0.0-1.0); MYELOCYTES % (MANUAL) 1 %; PLATELET ESTIMATE, MANUAL NORMAL (130-450,000) (NORMAL); RBC MORPHOLOGY (MULTIPLE) NORMAL APPEARANCE (NORMAL)
[2019-08-22] MEDS ORDERED: BENZONATATE 100 MG CAPSULE PO PRN (09:24)
[2019-08-22] MEDS ORDERED: NALOXONE HCL BC SCH (09:30)
[2019-08-22] MEDS ORDERED: BUPRENORPHINE HCL BC SCH (09:30)
[2019-08-22] MEDS ORDERED: [UNRECOGNIZED DRUG - OTHER] BC SCH (09:30)
[2019-08-22] MEDS: CEFEPIME 2 GM in SODIUM CHLORIDE 0.9% MINIBAG 100 ML IV SCH ×2 (10:17→21:06)
[2019-08-22] MEDS: SODIUM CHLORIDE 0.9% 1,000 ML IV SCH (10:17)
[2019-08-22] MEDS: OXYMETAZOLINE HCL 100 SPRAYS BOTTLE NAS SCH ×2 (10:17→21:14)
[2019-08-22] MEDS: ENOXAPARIN 40 MG/0.4 ML SYRINGE SUBQ SCH (10:19)
[2019-08-22] MEDS: guaiFENesin 600 MG TABLET PO SCH ×2 (10:19→21:13)
[2019-08-22] MEDS: SODIUM CHLORIDE FLUSH 0.9% 10 ML SYRINGE IVP SCH ×2 (10:19→16:38)
[2019-08-22] MEDS: polyethylene glycoL 3350 17 GM PACKET PO SCH (10:19)
[2019-08-22] MEDS: BUPRENORPHINE 0.3 MG/ML VIAL IVP SCH ×3 (10:20→21:15)
--- NOTE | 2019-08-22 15:35 | PROVIDER PROGRESS NOTE ---
Subjective - Prog Note Date Prog Note Date: 08/22/19 Prog Note Time: 15:33 - Subjective Pt reports feeling: Improved Subjective: Rock complains of an ongoing headache, chest pressure while coughing, and a productive cough. He denies new symptoms such as worsening chest pain, his rash spreading, dizziness, new shortness of breath, nausea, vomiting, or constipation. Current Medications - Current Medications Current Medications: Active Medications: Acetaminophen (Tylenol) 650 mg PO Q4HR PRN Albuterol/Ipratropium (Duoneb) 3 ml INH Q4HR PRN Azithromycin (Zithromax) 500 mg PO Q24H [facility] Benzonatate (Tessalon) 100 mg PO TID PRN Buprenorphine (Buprenex) 0.3 mg IVP Q6H [facility] Diphenhydramine HCl (Benadryl) 25 mg PO Q4HR PRN Enoxaparin Sodium (Lovenox) 40 mg SUBQ DAILY [facility] Guaifenesin (Mucinex) 600 mg PO BID [facility] Cefepime HCl 2 gm/ Sodium (Chloride) 100 mls @ 200 mls/hr IV BID [facility] Vancomycin HCl 1 gm/ Sodium (Chloride) 250 mls @ 167 mls/hr IV Q8H [facility] Lactobacillus Rhamnosus (Culturelle) 1 cap PO DAILY [facility] Oxymetazoline HCl (Afrin) 2 sprays TYRA BID [facility] Polyethylene Glycol (Miralax) 17 gm PO DAILY [facility] HOME meds: Buprenorphine HCl/Naloxone HCl 2.5 film BC DAILY 08/22/19 Objective - Vital Signs/Intake & Output Reviewed Vital Signs: Yes Vital Signs: Vital Signs x48h Temp Pulse Resp BP Pulse Ox 08/22/19 07:39 37.3 C 66 22 138/93 H 98 Intake & Output: Intake & Output 08/19/19 08/20/19 08/21/19 08/22/19 23:59 23:59 23:59 23:59 Intake Total 1752.5 3021.677 2693.333 Output Total 575 Balance 1752.5 8976.677 2693.333 - Objective General Appearance: positive: Alert, Mild distress, Anxious Eyes Bilateral: positive: PERRL, No lid inflammation ENT: positive: No signs of dehydration, Pharyngeal erythema Neck: positive: No JVD, Trachea midline Respiratory: positive: Chest non-tender, No respiratory distress, Other (scattered crackles, bilaterally) Cardiovascular: positive: Regular rate & rhythm, No murmur, No gallop, Tachycardia Peripheral Pulses: 2+ Radial (R), 2+ Radial (L) Abdomen: positive: Non-tender, Nml bowel sounds, Guarding Back: positive: Nml inspection Skin: positive: No rash, Warm, Dry, Skin rash (present on admission) Extremities: positive: Non-tender, Full ROM, Nml appearance, No pedal edema Neurologic/Psychiatric: positive: Oriented x3, CN's nml (2-12), Motor nml, Sensation nml, Depressed mood/affect (flat, baseline depression) Reflexes: Bicep (R): 4+, Bicep (L): 4+ - Lab Results Fish Bones: 08/22/19 04:30 08/22/19 04:30 Other Labs: Lab Results x24hrs 08/22/19 08/22/19 Range/Units 04:30 04:30 WBC 7.0 (4.8-10.8) x10^3/uL RBC 4.27 L (4.70-6.10) 10^6/uL Hgb 13.5 L (14.0-18.0) g/dL Hct 40.2 L (42.0-52.0) % MCV 94.1 H (80.0-94.0) fL MCH 31.6 H (27.0-31.0) pg MCHC 33.6 (32.0-36.0) g/dL RDW 12.5 (12.0-15.0) % Plt Count 208 (130-450) 10^3/uL MPV 11.1 (7.4-11.4) fL Neut # (Auto) Not Reportable Lymph # (Auto) Not Reportable [place] # (Auto) Not Reportable Eos # (Auto) Not Reportable Baso # (Auto) Not Reportable Absolute Nucleated RBC Not Reportable Total Counted 100 Band Neuts % (Manual) 8 (0 - 10) % Abnorm Lymph % (Manual) 0 % Metamyelocytes % 1 H ( - 0) % Myelocytes % 1 H ( - 0) % Nucleated RBC % Not Reportable Neutrophils # (Manual) 5.4 (1.5-6.6) 10^3/uL Lymphocytes # (Manual) 1.2 L (1.5-3.5) 10^3/uL Monocytes # (Manual) 0.3 (0.0-1.0) 10^3/uL Eosinophils # (Manual) 0.0 (0-0.7) 10^3/uL Basophils # (Manual) 0.0 (0-0.1) 10^3/uL Differential Comment MANUAL DIFFERENTIAL Platelet Estimate NORMAL (130-450,000) (NORMAL) RBC Morph Micro Appear NORMAL APPEARANCE (NORMAL) Sodium 135 (135-145) mmol/L Potassium 3.7 (3.5-5.0) mmol/L Chloride 104 (101-111) mmol/L Carbon Dioxide 25 (21-32) mmol/L Anion Gap 6.0 (6-13) BUN 11 (6-20) mg/dL Creatinine 0.5 L (0.6-1.2) mg/dL Estimated GFR (MDRD) 185 (>89) Glucose 104 H (70-100) mg/dL Calcium 7.8 L (8.5-10.3) mg/dL ABX Reporting Has patient been on IV antibiotics over the past 48 hours?: Yes Assessment/Plan - Problem List (1) Multifocal pneumonia Impression: -Patient has a known history of heroin and methamphetamine abuse, now complicated by shortness of breath, a productive cough, and generalized body aches, which started 3 days ago -Patient admitted to traveling to [place] 2 to 3 weeks ago -Sick contact was; a nephew who is been sick with a viral infection -Upon arrival while in the ED, the patient was hypoxic at 86% on room air, febrile, and chest x-ray shows multifocal pneumonia -Continues on vancomycin, cefepime & Azithromycin Day #2 -Blood cultures show no growth -Weaned off oxygen, Duonebs, prn -Tylenol prn for fever -COVID-19 sample collected and pending today -Obtain a sputum sample Acute respiratory failure with hypoxia -Secondary to acute pneumonia vs methamphetamine and heroin use -Now weaned to room air, oxygen 98% -Ongoing productive cough -Continues on empiric antibiotics with vancomycin, cefepime and azithromycin -Continue respiratory cares, duonebs as needed Headache -Complains of a frontal and top of head headache -Burning at times, worse while coughing -Added Mucinex BID -Starting Afrin spray BID, scheduled x6 doses Drug abuse -[facility] [place] + for: Methamphetamine, amphetamines, & opiates -Attends a Methadone clinic and is prescribed Suboxone sublingual films, mother was going to drop off his home doses -IV Buprenex scheduled, added to cover him until his home dose is obtained -Denies IV use, inhalants -Social work for community resources Allergic dermatitis -Complains of itching, patches on extremities, chest, and back, slightly raised -Etiology undetermined, but likely due to additives from meth -Continues on Benadryl, prn -Still avoiding steroids, contraindicated with COVID-19 -Monitor for improvement
[2019-08-22] MEDS: AZITHROMYCIN 250 MG TABLET PO SCH (21:13)
[2019-08-23] MEDS: SODIUM CHLORIDE FLUSH 0.9% 10 ML SYRINGE IVP SCH ×2 (00:50→03:36)
[2019-08-23] MEDS: ACETAMINOPHEN 325 MG TABLET PO PRN ×2 (01:03→05:20)
[2019-08-23] MEDS: BENZOCAINE/MENTHOL LOZENGE MM PRN ×2 (01:04→05:20)
[2019-08-23] MEDS: diphenhydrAMINE 25 MG CAPSULE PO PRN ×2 (01:04→05:20)
[2019-08-23] MEDS: BUPRENORPHINE 0.3 MG/ML VIAL IVP SCH (03:36)
[2019-08-23] MEDS: VANCOMYCIN INJ 1 GM in SODIUM CHLORIDE 0.9% 250 ML IV SCH (03:36)
[2019-08-23 05:45] LABS: BASOPHILS % (AUTO) 0.4 %; HGB - HEMOGLOBIN 13.4 g/dL (14.0-18.0); MEAN CORPUSCULAR HEMOGLOBIN 30.5 pg (27.0-31.0); MEAN CORPUSCULAR HGB CONC 32.9 g/dL (32.0-36.0); MEAN CORPUSCULAR VOLUME 92.5 fL (80.0-94.0); MEAN PLATELET VOLUME 11.3 fL (7.4-11.4); MONOCYTES % (AUTO) 6.2 %; NEUTROPHILS % (AUTO) 69.7 %; PLT - PLATELET COUNT 250 10^3/uL (130-450); RED CELL DISTRIBUTION WIDTH 12.4 % (12.0-15.0); WHITE BLOOD COUNT 8.4 x10^3/uL (4.8-10.8)
[2019-08-23 05:51] LABS: CALCIUM 8.1 mg/dL (8.5-10.3); CREATININE 0.6 mg/dL (0.6-1.2)
[2019-08-23 05:57] LABS: ABNORMAL LYMPHS % (MANUAL) 0 %
[2019-08-23 06:17] LABS: BAND NEUTROPHILS % (MANUAL) 3 %; DIFFERENTIAL COMMENT MANUAL DIFFERENTIAL; LYMPHOCYTES % (MANUAL) 12 %; PLATELET ESTIMATE, MANUAL NORMAL (130-450,000) (NORMAL); RBC MORPHOLOGY (MULTIPLE) NORMAL APPEARANCE (NORMAL)
[2019-08-23 08:29] VITALS: BP 132/81
[2019-08-23] MEDS ORDERED: LACTOBACILLUS RHAMNOSUS GG CAPSULE PO SCH (09:00)
[2019-08-23] MEDS: ENOXAPARIN 40 MG/0.4 ML SYRINGE SUBQ SCH (09:07)
[2019-08-23] MEDS: CEFEPIME 2 GM in SODIUM CHLORIDE 0.9% MINIBAG 100 ML IV SCH (09:07)
[2019-08-23] MEDS: OXYMETAZOLINE HCL 100 SPRAYS BOTTLE NAS SCH (09:08)
[2019-08-23] MEDS: guaiFENesin 600 MG TABLET PO SCH (09:08)
[2019-08-23] MEDS: polyethylene glycoL 3350 17 GM PACKET PO SCH (09:08)
--- NOTE | 2019-08-23 10:33 | Discharge Plan ---
Discharge Plan Problem Reviewed?: Yes Disposition: Home, Self Care Condition: Good Prescriptions: Benzonatate [Tessalon] 100 mg PO TID PRN #25 capsule PRN Reason: Cough guaiFENesin [Mucinex] 600 mg PO BID #60 tablet Levofloxacin [Levaquin] 500 mg PO DAILY #7 tablet Diet: Regular Activity Restrictions: Stay home, avoid the general public please, wear a mask while out of your house. Shower Restrictions: No Driving Restrictions: No Instruction Topics: Cefepime injection, Vancomycin injection, Azithromycin tablets, COVID-19 [facility], COVID-19 [facility] Department Statement Health Concerns: Pneumonia Hypoxia (low oxygen) Possible COVID-19, test is still pending Plan of Treatment: Continue treatment for this pneumonia Treat symptoms with cough suppressant, nasal spray Stay indoors for at least the next 10 days or so Care Goals: Prevent ED visits or hospital stays Clear infection Assessment: You were admitted for community acquired pneumonia, but also with concerns for COVID-19, which is still pending. You can expect a call from me on those results either negative or positive. You will need another 7 days of antibiotics to be taken once daily. Continue with the Afrin spray for a total of 6 doses (twice daily x3 days). You have had a total of 3 doses while here, so just 3 more to go. Please sent someone else to the pharmacy, or wear a mask while out in public. You symptoms should improve gradually, but you will notice that you are generally more tired, so get extra rest. You are free to return home today. No Smoking: If you smoke, Please STOP! Call for help.
--- NOTE | 2019-08-23 10:46 | DISCHARGE SUMMARY ---
Discharge Summary Admit Date: 08/20/19 Discharge Date: 08/23/19 Discharging Provider: EILEEN Jules Primary Care Provider: none Code Status: Attempt Resuscitation Condition at Discharge: Good Discharge Disposition: 01 Home, Self Care - DIAGNOSES Discharge Diagnoses with Status of Each Condition: Multifocal pneumonia-Present on admission, noted on imaging, suspect COVID-19, which is still pending, stable and continued on oral antibiotics Acute respiratory failure with hypoxia-Present on admission, resolved Headache-Chronic, improved after afrin spray, stable Drug abuse-Chronic, + for meth on urine drug screen, encouraged to avoid drugs when taking chronic Suboxone, stable Allergic dermatitis-Present on admission, rashes improved and were less itchy, not thought to be from antibiotics since they occurred prior to this admission, stable - HPI History of Present Illness: HPI per Dr. May: Rock Mayen is a 38 y/o male with history of heroin and methamphetamine use who presented to the ED with dyspnea, a productive cough and generalized body aches. His symptoms started 3 days ago. He finally came in because the body aches and dyspnea was unbearable. He was around his nephew who has been sick with a viral infection lately. He also recently travel to [place] 2-3 weeks ago. When he presented to the ED he had an oxygen saturation of 86% on room air and he was febrile. Chest x-ray done in the ED was concerning for multi-focal pneumonia. As a result, he was presented for admission. At bedside he complained of generalized body ache. There is a significant collection of thick yellowish white sputum i the emesis bag at his side. He has extensive urticaria/rash all over his body which is pruritic. It started 2 days ago. He denies any new detergent, lotion or medication. He took over the counter Vitamin B12 and C. he last used heroin or methamphetamine 3 days ago. he n ormally smokes it. He obtained it from the same person he normally gets it from. On auscultation of his lungs, there is no significant, appreciable wheeze. - HOSPITAL COURSE Hospital Course: The patient was admitted for community acquired pneumonia, but also with concerns for COVID-19, which is still pending. The patient will be called by our infectious control RNRadha with those results. He was prescribed another 7 days of antibiotics to be taken once daily & continue with the Afrin spray for a total of 6 doses (twice daily x3 days). The patient was encouraged to send someone else to the pharmacy, or wear a mask while out in public. The patient's symptoms continued to improve and he did not require oxygen upon discharge. He was medically stable and discharged home with his mother with a recommendation for self quarantine. - ALLERGIES Allergies/Adverse Reactions: Allergies Allergy/AdvReac Type Severity Reaction Status Date / Time No Known Drug Allergies Allergy Verified 08/20/19 18:35 - MEDICATIONS Home Medications: Ambulatory Orders Medication Instructions Recorded Confirmed Buprenorphine HCl/Naloxone HCl 2.5 film BC DAILY 08/22/19 08/22/19 [Suboxone 8 mg-2 mg Sl Film] Benzonatate [Tessalon] 100 mg PO TID PRN #25 capsule 08/23/19 Levofloxacin [Levaquin] 500 mg PO DAILY #7 tablet 08/23/19 guaiFENesin [Mucinex] 600 mg PO BID #60 tablet 08/23/19 - PHYSICAL EXAM AT DISCHARGE General Appearance: positive: No acute distress, Alert Eyes Bilateral: positive: Normal inspection, PERRL ENT: positive: ENT inspection nml, Pharynx nml, No signs of dehydration Neck: positive: Thyroid nml, No JVD, Trachea midline Respiratory: positive: Chest non-tender, No respiratory distress, Breath sounds nml Cardiovascular: positive: Regular rate & rhythm, No murmur, No gallop Peripheral Pulses: positive: 2+ Abdomen: positive: Non-tender, Nml bowel sounds Back: positive: Nml inspection Skin: positive: Color nml, No rash, Warm, Dry Extremities: positive: Non-tender, Full ROM, Nml appearance, No pedal edema Neurologic/Psychiatric: positive: Oriented x3, CN's nml (2-12), Motor nml, Sensation nml, Depressed mood/affect (flat) Reflexes: Bicep (R): 3+, Bicep (L): 3+ - LABS Result Diagrams: 08/23/19 04:20 08/23/19 04:20 - FOLLOW UP Follow Up: Establish care with a PCP, seek medical attention if your breathing becomes worse COVID-19 testing still pending - TIME SPENT Time Spent in Discharge (Minutes): 55
[2019-08-23 10:49] LABS: VANCOMYCIN,TROUGH 9.3 ug/mL (10.0-20.0)
== END 2019-08-23 13:10 | disposition home or self-care (01) | DRG 177 ==
LOC: EDUNIT# → ED 18:08 → MS2 21:24
PROVIDERS: ADMIT Internal Medicine; ATTEND Nurse Practitioner
DX: J15.212 Pneumonia due to Methicillin resistant Staphylococcus aureus (principal); J96.01 Acute respiratory failure with hypoxia; F11.10 Opioid abuse, uncomplicated; F15.10 Other stimulant abuse, uncomplicated; R51 Headache; L23.9 Allergic contact dermatitis, unspecified cause; F17.200 Nicotine dependence, unspecified, uncomplicated
CPT/HCPCS: 36415; 71045; 80048; 80053; 80202; 80306; 81001; 81599; 83605; 83690; 85025; 85610; 85730; 87040; 87070; 87181; 87205; 87275; 87276; 87635; 94640; 96361; 96365; 96366; 96368; 99285; A9270; J0592; J1200; J1650; J3370; 81003; 87086

== ENCOUNTER 2019-12-03 14:33 | Inpatient (IN) | payer MEDICAID ==
[2019-12-03] MEDS ORDERED: VANCOMYCIN INJ 2 GM in SODIUM CHLORIDE 0.9% 500 ML IV STA (15:40)
[2019-12-03] MEDS ORDERED: LIDOCAINE-EPINEPH-TETRACAINE 3 ML SYRINGE TOP STA (15:40)
[2019-12-03] MEDS ORDERED: PROPOFOL 200 MG/20 ML VIAL IVP STA (15:40)
--- NOTE | 2019-12-03 15:42 | ED Physician Documentation ---
History of Present Illness - Stated complaint Stated Complaint: FACIAL SWELLING RT SIDE - Chief complaint Chief Complaint: General - History obtained from History obtained from: Patient, Family (sister) - Additonal information Additional information: 2 days painful swelling in R nares with chills. Worsening now with facial swelling. No hx MRSA. Pain and swelling Are severe in the right face and radi ating to the right. Nothing makes it better or worse. Review of Systems Ten Systems: 10 systems reviewed and negative Constitutional: reports: Chills. denies: Fever Ears: denies: Loss of hearing, Ear pain PD PAST MEDICAL HISTORY - Past Medical History Past Medical History: No - Past Surgical History Past Surgical History: Yes - Present Medications Home Medications: Ambulatory Orders Medication Instructions Recorded Confirmed Buprenorphine HCl/Naloxone HCl 2.5 film BC DAILY 08/22/19 08/22/19 [Suboxone 8 mg-2 mg Sl Film] Benzonatate [Tessalon] 100 mg PO TID PRN #25 capsule 08/23/19 Levofloxacin [Levaquin] 500 mg PO DAILY #7 tablet 08/23/19 guaiFENesin [Mucinex] 600 mg PO BID #60 tablet 08/23/19 - Allergies Allergies/Adverse Reactions: Allergies Allergy/AdvReac Type Severity Reaction Status Date / Time No Known Drug Allergies Allergy Verified 08/20/19 18:35 - Social History Does the pt smoke?: Yes Smoking Status: Current every day smoker Does the pt drink ETOH?: Yes Does the pt have substance abuse?: No - Immunizations Immunizations are current?: Yes - POLST Patient has POLST: No POLST Status: Full Code PD ED PE NORMAL - Vitals Vital signs reviewed: Yes - General General: Alert and oriented X 3, No acute distress - HEENT HEENT: Other (Pointed Lg abscess in R nares with facial swelling up to forehead, periorbital and R cheek) - Neck Neck: Supple, no meningeal sign, No bony TTP - Cardiac Cardiac: RRR, No murmur - Respiratory Respiratory: No respiratory distress, Clear bilaterally - Abdomen Abdomen: Normal bowel sounds, Soft, Non tender - Back Back: No CVA TTP, No spinal TTP - Derm Derm: Normal color, Warm and dry - Neuro Neuro: Alert and oriented X 3, Normal speech Results - Vitals Vitals: Vital Signs - 24 hr 12/03/19 12/03/19 12/03/19 14:39 15:44 16:30 Temperature 36.9 C Heart Rate 108 H 90 88 Respiratory 18 16 16 Rate Blood Pressure 141/81 H 137/89 H 136/88 H O2 Saturation 98 100 100 12/03/19 12/03/19 12/03/19 16:32 16:35 16:45 Temperature Heart Rate 85 108 H 100 Respiratory 16 13 16 Rate Blood Pressure 144/94 H 144/94 H O2 Saturation 98 100 12/03/19 12/03/19 17:00 17:30 Temperature Heart Rate 86 88 Respiratory 14 16 Rate Blood Pressure 142/87 H 140/80 H O2 Saturation 99 100 Oxygen O2 Source Room air - Labs Labs: Laboratory Tests 12/03/19 12/03/19 12/03/19 15:58 15:58 16:12 WBC 8.3 RBC 4.58 L Hgb 14.1 Hct 42.0 MCV 91.7 MCH 30.8 MCHC 33.6 RDW 12.4 Plt Count 220 MPV 10.5 Neut # (Auto) 6.1 Lymph # (Auto) 1.3 L Pitkin # (Auto) 0.7 Eos # (Auto) 0.1 Baso # (Auto) 0.0 Absolute Nucleated RBC 0.00 Nucleated RBC % 0.0 Sodium 136 Potassium 3.8 Chloride 102 Carbon Dioxide 26 Anion Gap 8.0 BUN 10 Creatinine 0.7 Estimated GFR (MDRD) 125 Glucose 107 H Lactic Acid 1.1 Calcium 8.8 Total Bilirubin 0.5 AST 18 ALT 18 Alkaline Phosphatase 67 Total Protein 6.9 Albumin 3.6 Globulin 3.3 Albumin/Globulin Ratio 1.1 Lipase 29 Procedures - Abscess I&D (location) Nasal Preparation: LET, Conscious sedation Incision: Incised with scalpel, Purulent drainage, Loculations broken, Culture obtained Other: Pt tolerated well, Dressing applied, Antibiotic prescribed - Procedural sedation Sedation prep: Informed consent, Time out completed, PE performed, AHA 1 - healthy Sedation medications: propofol (divided doses total 150mg) Patient status during sedation: Recovered uneventfully. No: Respiratory depression, Hypoxia Sedation recovery: Recovered uneventfully Time in sedation (Minutes): 10 PD MEDICAL DECISION MAKING - ED course ED course: 39-year-old gentleman presents with a large intranasal abscess and reactive facial cellulitis. He was sedated and an incision and drainage drainage was done with large volume of purulent return and a culture was sent. Placed on vancomycin. Spoke with Dr. Iyv for admission at 4:46 PM. Departure - Departure Disposition: 66 [facility] DC/Xfer Clinical Impression: Nasal abscess, Facial cellulitis Condition: Stable Discharge Date/Time: 12/03/19 17:36
[2019-12-03 16:07] LABS: BASOPHILS % (AUTO) 0.2 %; EOSINOPHILS # (AUTO) 0.1 10^3/uL (0.0-0.7); EOSINOPHILS % (AUTO) 1.6 %; HGB - HEMOGLOBIN 14.1 g/dL (14.0-18.0); LYMPHOCYTES # (AUTO) 1.3 10^3/uL (1.5-3.5); MEAN CORPUSCULAR HEMOGLOBIN 30.8 pg (27.0-31.0); MEAN CORPUSCULAR HGB CONC 33.6 g/dL (32.0-36.0); MEAN CORPUSCULAR VOLUME 91.7 fL (80.0-94.0); MEAN PLATELET VOLUME 10.5 fL (7.4-11.4); MONOCYTES # (AUTO) 0.7 10^3/uL (0.0-1.0); MONOCYTES % (AUTO) 8.7 %; NEUTROPHILS # (AUTO) 6.1 10^3/uL (1.5-6.6); NEUTROPHILS % (AUTO) 73.1 %; PLT - PLATELET COUNT 220 10^3/uL (130-450); RED BLOOD COUNT 4.58 10^6/uL (4.70-6.10); RED CELL DISTRIBUTION WIDTH 12.4 % (12.0-15.0); WHITE BLOOD COUNT 8.3 x10^3/uL (4.8-10.8)
[2019-12-03 16:20] LABS: ALBUMIN 3.6 g/dL (3.2-5.5); ALBUMIN/GLOBULIN RATIO 1.1 (1.0-2.2); BILIRUBIN,TOTAL 0.5 mg/dL (0.2-1.0); CALCIUM 8.8 mg/dL (8.5-10.3); CREATININE 0.7 mg/dL (0.6-1.2); TOTAL PROTEIN 6.9 g/dL (6.7-8.2)
[2019-12-03] MEDS ORDERED: HYDROmorphone 1 MG/ML CARPUJECT IVP STA (16:53)
[2019-12-03] MEDS ORDERED: ACETAMINOPHEN 325 MG TABLET PO PRN ×2 (17:03→18:01)
[2019-12-03] MEDS ORDERED: ONDANSETRON 4 MG/2 ML VIAL IVP PRN ×2 (17:03→18:01)
[2019-12-03] MEDS ORDERED: HYDROcod/ACETAM 5/325 MG TABLET PO PRN ×2 (17:03→18:01)
[2019-12-03] MEDS ORDERED: SODIUM CHLORIDE FLUSH 0.9% 10 ML SYRINGE IVP PRN (17:03)
[2019-12-03] MEDS ORDERED: HYDROmorphone 0.5 MG/0.5 ML SYRINGE IVP PRN ×2 (17:03→18:01)
[2019-12-03] MEDS ORDERED: D5NS W/20 MEQ KCL 1,000 ML IV SCH (17:06)
[2019-12-03] MEDS: D5NS W/20 MEQ KCL 1,000 ML IV SCH (18:36)
--- NOTE | 2019-12-03 18:42 | HISTORY & PHYSICAL EXAMINATION ---
DATE OF SERVICE: 12/03/2019 Physician: Shauna Ivy MD HISTORY OF PRESENT ILLNESS: This is a 39-year-old white male with a history of meth abuse and heroin abuse, that he normally used to smoke. He was on on Suboxone for abstinence but says he has quit using drugs and is no longer on Suboxone. He was admitted here 3 months ago with pneumonia, needed to be COVID tested, which was neg. The patient presents with 2 days of swelling and pain of the right nares and then spread of redness and swelling to the right cheek and even forehead. There have been 2 days of chills, but no fever documented. He came to the ER. The sister gave most of the history in the Emergency Room. In the ER, he was found to have an abscess of the right naris with redness of the right cheek and forehead consistent with cellulitis. He underwent conscious sedation with Propofol and then had an incision and drainage of the right nares, and a very large abscess was drained of purulent material, loculations were broken and cultures were sent. The patient is being admitted for facial cellulitis and nasal abscess. He started to get IV pain medication, as well as IV antibiotics in the ER. PAST MEDICAL HISTORY 1. Hx of drug abuse of methamphetamine and heroin. 2. Pneumonia 3 months ago. 3. Tobacco use. ALLERGIES: NONE. MEDICATIONS He denies taking the Suboxone any longer. FAMILY HISTORY: No inherited diseases. SOCIAL HISTORY: The patient smokes cigarettes. He drinks alcohol. He denies drug abuse currently. REVIEW OF SYSTEMS: A comprehensive review of systems was done and the pertinent positives are listed, the rest are negative. PHYSICAL EXAMINATION GENERAL: Middle-aged white male. VITAL SIGNS: Blood pressure 140/90, heart rate 88-100 in sinus rhythm, room air saturation 99%. He is afebrile. HEENT: Reveals swelling and redness of the entire nose, there is no packing in the nose. The oropharynx is not swollen. The right cheek is mildly red and mildly swollen. NECK: No JVD. CHEST: Clear. HEART: Normal heart sounds. ABDOMEN: Soft. EXTREMITIES: No clubbing, cyanosis or edema. NEUROLOGIC: He is somnolent (after Propofol) but awakens and speaks, and neuro exam is grossly intact. LABORATORY DATA: Normal electrolytes. Normal BUN and creatinine. Normal lactic acid 1.1. Normal liver tests and lipase. White blood count normal at 8.3, hemoglobin 14.1, platelet normal at 220. No INR was done. No imaging was done. No EKG done. IMPRESSION 1. Facial cellulitis. 2. Nasal abscess, status post incision and drainage in the ER. 3. History of drug use of methamphetamine and heroin, stopped sometime during the past 3 mos. 4. Tobacco user. PLAN 1. Admit the patient to medical/surgical status. 2. Continue with IV antibiotics with vancomycin. Await wound culture results to transition to oral antibiotics. 3. Continue the pain meds prn. 4. Consider consultation with oral maxillofacial surgery for further management. 5. Follow his WBC. 6. Begin IV fluids, titrate down if he is adequately orally hydrating. 7. Begin a soft diet, advance as tolerated. 8. Watch for neurologic changes, which would suggest infection extension into the RECREATIONAL DIRECTOR, like the cavernous sinus. CT brain imaging would be indicated then. DEEP VENOUS THROMBOSIS PROPHYLAXIS: SCDs. CODE STATUS: FULL CODE. ATTESTATION: The patient is expected to be discharged or transferred to another facility within 96 hours: Yes. TD: 12/03/2019 17:46 JE[place]
[2019-12-03 20:10] LABS: INR 1.1 (0.8-1.2); PT - PROTHROMBIN TIME 12.9 secs (9.9-12.6)
[2019-12-03] MEDS: HYDROmorphone 1 MG/ML CARPUJECT IVP PRN (20:22)
[2019-12-03] MEDS: FAMOTIDINE 20 MG TABLET PO SCH (20:22)
[2019-12-03] MEDS ORDERED: FAMOTIDINE 20 MG TABLET PO SCH (21:00)
[2019-12-04] MEDS: AMPICILLIN/SULBACTAM 3 GM in SODIUM CHLORIDE 0.9% MINIBAG 100 ML IV SCH ×4 (00:53→17:44)
[2019-12-04] MEDS: ethyl alcohoL 62% SWAB AMPULE NAS SCH ×3 (00:58→20:46)
[2019-12-04] MEDS ORDERED: SODIUM CHLORIDE FLUSH 0.9% 10 ML SYRINGE IVP SCH (01:00)
[2019-12-04] MEDS: SODIUM CHLORIDE FLUSH 0.9% 10 ML SYRINGE IVP SCH ×3 (01:35→16:04)
[2019-12-04] MEDS: VANCOMYCIN INJ 1 GM, VANCOMYCIN INJ 250 MG in SODIUM CHLORIDE 0.9% 250 ML IV SCH ×3 (01:37→16:10)
[2019-12-04] MEDS: HYDROmorphone 1 MG/ML CARPUJECT IVP PRN ×3 (01:46→12:46)
[2019-12-04 05:59] LABS: BASOPHILS % (AUTO) 0.4 %; EOSINOPHILS # (AUTO) 0.1 10^3/uL (0.0-0.7); EOSINOPHILS % (AUTO) 1.2 %; HGB - HEMOGLOBIN 13.4 g/dL (14.0-18.0); LYMPHOCYTES # (AUTO) 1.4 10^3/uL (1.5-3.5); LYMPHOCYTES % (AUTO) 19.6 %; MEAN CORPUSCULAR HEMOGLOBIN 29.2 pg (27.0-31.0); MEAN CORPUSCULAR HGB CONC 32.4 g/dL (32.0-36.0); MEAN CORPUSCULAR VOLUME 90.2 fL (80.0-94.0); MEAN PLATELET VOLUME 10.9 fL (7.4-11.4); MONOCYTES # (AUTO) 0.5 10^3/uL (0.0-1.0); MONOCYTES % (AUTO) 6.6 %; NEUTROPHILS # (AUTO) 5.2 10^3/uL (1.5-6.6); NEUTROPHILS % (AUTO) 72.1 %; PLT - PLATELET COUNT 223 10^3/uL (130-450); RED BLOOD COUNT 4.59 10^6/uL (4.70-6.10); RED CELL DISTRIBUTION WIDTH 12.3 % (12.0-15.0); WHITE BLOOD COUNT 7.2 x10^3/uL (4.8-10.8)
[2019-12-04 06:11] LABS: CALCIUM 8.6 mg/dL (8.5-10.3); CREATININE 0.6 mg/dL (0.6-1.2)
[2019-12-04] MEDS: FAMOTIDINE 20 MG TABLET PO SCH ×2 (09:02→20:45)
[2019-12-04] MEDS: PATIENT OWN CONTROLLED 1 EACH BC SCH (09:03)
[2019-12-04] MEDS: D5NS W/20 MEQ KCL 1,000 ML IV SCH ×2 (09:11→20:56)
--- NOTE | 2019-12-04 09:15 | PROVIDER PROGRESS NOTE ---
Assessment/Plan - Problem List (1) Facial cellulitis Assessment/Plan: Patient report he feels significantly better than yesterday. Erythema and swallow was well reduced. Patient denies fever and chill. We will continue antibiotics by intravenous. Patient blood culture and wound culture are pending.Continue pain control (2) Nasal abscess Assessment/Plan: Patient'a nasal swallow ia significantly reduced, Patient had I/D done in the ER, large purulent drainage was taken in ER and culture is pending. Continue antibiotics, continue pain control (3) Drug abuse Assessment/Plan: Patient has a significant history of drug abuse like methamphetamine and heroin. Advise the patient quit, add drug screening - Current Meds Current Meds: Current Medications Generic Name Dose Route Start Last Admin Trade Name Freq PRN Reason Stop Dose Admin Alcohol 1 amp 12/03/19 23:00 12/04/19 09:05 Nozin TYRA 1 amp BID EDITA Administration Famotidine 20 mg 12/03/19 21:00 12/04/19 09:02 Pepcid PO 20 mg BID EDITA Administration Hydromorphone HCl 1 mg 12/03/19 18:49 12/04/19 09:08 Dilaudid Inj Carp IVP 1 mg Q2H PRN Administration Pain 8 to 10 Potassium Chloride/Dextrose/Sod Cl 1,000 mls @ 83.33 mls/hr 12/03/19 18:00 12/04/19 09:11 IV 83.33 mls/hr .Q12H1M EDITA Administration Vancomycin HCl 1 gm/ 250 mls @ 166.667 mls/hr 12/04/19 01:00 12/04/19 09:12 Vancomycin HCl 250 mg/ Sodium IV 167.667 mls/hr Chloride Q8H EDITA Administration Ampicillin Sodium/Sulbactam 100 mls @ 200 mls/hr 12/04/19 00:00 12/04/19 06:50 Sodium 3 gm/ Sodium Chloride IV 200 mls/hr Q6HR EDITA Administration Patient Own Medication 2.5 each 12/04/19 09:00 12/04/19 09:03 Patient Own Controlled BC Not Given DAILY EDITA Sodium Chloride 10 ml 12/04/19 01:00 12/04/19 09:07 Normal Saline Flush 0.9% IVP 10 ml 0100,0900,1700 EDITA Administration - Lab Result Fish Bone Diagrams: 12/04/19 05:15 12/04/19 05:15 - Additional Planning My Orders: My Active Orders 12/04/19 CRP - C-REACTIVE PROTEIN [CHEM] Urgent DRUG SCREEN MEDICAL (MUDS) [URIN] Urgent 12/04/19 09:11 oxyCODONE [Roxicodone] 5 mg PO Q4HR PRN 12/05/19 05:00 CRP - C-REACTIVE PROTEIN [CHEM] DAILYLAB 12/06/19 05:00 CRP - C-REACTIVE PROTEIN [CHEM] DAILYLAB 12/07/19 05:00 CRP - C-REACTIVE PROTEIN [CHEM] DAILYLAB 12/08/19 05:00 CRP - C-REACTIVE PROTEIN [CHEM] DAILYLAB Subjective - Subjective Patient Reports: Feeling Better Objective Vital Signs: Vital Signs - 24 hr 12/03/19 12/03/19 12/03/19 14:39 15:44 16:30 Temperature 36.9 C Heart Rate 108 H 90 88 Heart Rate [ Brachial] Respiratory 18 16 16 Rate Blood Pressure 141/81 H 137/89 H 136/88 H Blood Pressure [Left Brachial artery] O2 Saturation 98 100 100 12/03/19 12/03/19 12/03/19 16:32 16:35 16:45 Temperature Heart Rate 85 108 H 100 Heart Rate [ Brachial] Respiratory 16 13 16 Rate Blood Pressure 144/94 H 144/94 H Blood Pressure [Left Brachial artery] O2 Saturation 98 100 12/03/19 12/03/19 12/03/19 17:00 17:30 18:00 Temperature 37.1 C Heart Rate 86 88 Heart Rate [ 85 Brachial] Respiratory 14 16 16 Rate Blood Pressure 142/87 H 140/80 H Blood Pressure 131/80 H [Left Brachial artery] O2 Saturation 99 100 100 12/04/19 12/04/19 01:43 07:57 Temperature 37 C 37.0 C Heart Rate Heart Rate [ 86 91 Brachial] Respiratory 16 20 Rate Blood Pressure Blood Pressure 125/83 H 131/93 H [Left Brachial artery] O2 Saturation 99 99 Oxygen O2 Source Room air I&O (Last 24 Hrs): Intake and Output Totals x24h 12/02/19 12/03/19 12/04/19 23:59 23:59 23:59 Intake Total 506.807 1941 Balance 657.301 2310 General: Alert, Oriented x3, No acute distress HEENT: Atraumatic Neck: Supple Lymphatic: no adenopathy Neuro: Alert, Non Focal, Oriented Times 3 Cardiovascular: Regular rate, Normal S1, Normal S2 Respiratory: Chest non-tender, No respiratory distress, Breath sounds nml Abdomen: Normal bowel sounds, Soft, No tenderness Extremities: No edema, Normal pulses Comments/Notes: mild nasal swelling with erythema, no facial swelling or erythema - Results Results: Laboratory Results WBC 7.2 x10^3/uL (4.8-10.8) 12/04/19 05:15 RBC 4.59 10^6/uL (4.70-6.10) L 12/04/19 05:15 Hgb 13.4 g/dL (14.0-18.0) L 12/04/19 05:15 Hct 41.4 % (42.0-52.0) L 12/04/19 05:15 MCV 90.2 fL (80.0-94.0) 12/04/19 05:15 MCH 29.2 pg (27.0-31.0) 12/04/19 05:15 MCHC 32.4 g/dL (32.0-36.0) 12/04/19 05:15 RDW 12.3 % (12.0-15.0) 12/04/19 05:15 Plt Count 223 10^3/uL (130-450) 12/04/19 05:15 MPV 10.9 fL (7.4-11.4) 12/04/19 05:15 Neut # (Auto) 5.2 10^3/uL (1.5-6.6) 12/04/19 05:15 Lymph # (Auto) 1.4 10^3/uL (1.5-3.5) L 12/04/19 05:15 [place]eman # (Auto) 0.5 10^3/uL (0.0-1.0) 12/04/19 05:15 Eos # (Auto) 0.1 10^3/uL (0.0-0.7) 12/04/19 05:15 Baso # (Auto) 0.0 10^3/uL (0.0-0.1) 12/04/19 05:15 Absolute Nucleated RBC 0.00 x10^3/uL 12/04/19 05:15 Nucleated RBC % 0.0 /100WBC 12/04/19 05:15 PT 12.9 secs (9.9-12.6) H 12/03/19 15:53 INR 1.1 (0.8-1.2) 12/03/19 15:53 Sodium 141 mmol/L (135-145) 12/04/19 05:15 Potassium 3.9 mmol/L (3.5-5.0) 12/04/19 05:15 Chloride 107 mmol/L (101-111) 12/04/19 05:15 Carbon Dioxide 22 mmol/L (21-32) 12/04/19 05:15 Anion Gap 12.0 (6-13) 12/04/19 05:15 BUN 9 mg/dL (6-20) 12/04/19 05:15 Creatinine 0.6 mg/dL (0.6-1.2) 12/04/19 05:15 Estimated GFR (MDRD) 149 (>89) 12/04/19 05:15 Glucose 108 mg/dL (70-100) H 12/04/19 05:15 Lactic Acid 1.1 mmol/L (0.5-2.2) 12/03/19 16:12 Calcium 8.6 mg/dL (8.5-10.3) 12/04/19 05:15 Total Bilirubin 0.5 mg/dL (0.2-1.0) 12/03/19 15:58 AST 18 IU/L (10-42) 12/03/19 15:58 ALT 18 IU/L (10-60) 12/03/19 15:58 Alkaline Phosphatase 67 IU/L (42-121) 12/03/19 15:58 Total Protein 6.9 g/dL (6.7-8.2) 12/03/19 15:58 Albumin 3.6 g/dL (3.2-5.5) 12/03/19 15:58 Globulin 3.3 g/dL (2.1-4.2) 12/03/19 15:58 Albumin/Globulin Ratio 1.1 (1.0-2.2) 12/03/19 15:58 Lipase 29 U/L (22-51) 12/03/19 15:58 Nasal Screen MRSA (PCR) POSITIVE (NEGATIVE) A* 12/03/19 19:50 ABX Reporting Has patient been on IV antibiotics over the past 48 hours?: Yes Current Medications - Current Medications Current Medications: Active Medications Acetaminophen (Tylenol) 650 mg PO Q4HR PRN PRN Reason: Pain 1 to 4 Hydrocodone Bitart/Acetaminophen (Nichols 5/325) 1 tab PO Q4HR PRN PRN Reason: Pain 5 to 7 Alcohol (Nozin) 1 amp TYRA BID [facility], [facility] Last Admin: 12/04/19 09:05 Dose: 1 amp Documented by: Famotidine (Pepcid) 20 mg PO BID [facility] Last Admin: 12/04/19 09:02 Dose: 20 mg Documented by: Hydromorphone HCl (Dilaudid Inj Carp) 1 mg IVP Q2H PRN PRN Reason: Pain 8 to 10 Last Admin: 12/04/19 09:08 Dose: 1 mg Documented by: Potassium Chloride/Dextrose/Sod Cl () 1,000 mls @ 83.33 mls/hr IV .Q12H1M [facility], [facility] Last Admin: 12/04/19 09:11 Dose: 83.33 mls/hr Documented by: Vancomycin HCl 1 gm/Vancomycin HCl 250 mg/ Sodium Chloride 250 mls @ 166.667 mls/hr IV Q8H [facility] Last Admin: 12/04/19 09:12 Dose: 167.667 mls/hr Documented by: Ampicillin Sodium/Sulbactam (Sodium 3 gm/ Sodium Chloride) 100 mls @ 200 mls/hr IV Q6HR [facility] Last Infusion: 12/04/19 09:18 Dose: Infused Documented by: Ondansetron HCl (Zofran Inj) 4 mg IVP Q6HR PRN PRN Reason: Nausea / Vomiting Oxycodone HCl (Roxicodone) 5 mg PO Q4HR PRN PRN Reason: PAIN Patient Own Medication (Patient Own Controlled) 2.5 each BC DAILY [facility] Last Admin: 12/04/19 09:03 Dose: Not Given Documented by: Sodium Chloride (Normal Saline Flush 0.9%) 10 ml IVP PRN PRN PRN Reason: NEEDED PER PROVIDER ORDERS Sodium Chloride (Normal Saline Flush 0.9%) 10 ml IVP 0100,0900,1700 [facility] Last Admin: 12/04/19 09:07 Dose: 10 ml Documented by: Buprenorphine HCl/Naloxone HCl [Suboxone 8 mg-2 mg Sl Film] 2.5 film BC DAILY 08/22/19
--- NOTE | 2019-12-04 10:49 | PHARMACY PROGRESS NOTE ---
- Best Possible Medication History Admit Date and Time: 12/03/19 4816 Processed by: Pharmacy Medication History completed: Yes Secondary Source(s): Pharmacy records, Insurance records As the person ultimately responsible for medication therapy, providers are able to order a medication from an existing home medication list in [facility] via the "Reconcile Routine" prior to Confirmation of that medication by applications support engineer. Such practice is discouraged except when the physician, in their clinical judgment, deems that a medical need exists for a medication without regard to previous use.
--- NOTE | 2019-12-04 11:01 | PHARMACY PROGRESS NOTE ---
- Therapy Status Vancomycin regimen day #: 1 Therapy status: Awaiting steady state Basis for treatment: Empirical Treatment indication: FACIAL CELLULITIS Trough goal: 15-20 Concurrent antibiotics: AMP/SULBACTAM - MAGGY Risk Risk level for Acute Kidney Injury: Low Acute Kidney Injury risk factors: Goal trough >15 - Monitoring and Recommendation Clinical response to treatment: I&O Previous 24 hours 12/02/19 12/03/19 12/04/19 23:59 23:59 23:59 Intake Total 324.091 2515.663 Balance 151.822 9641.663 Lab Results 12/04/19 12/03/19 05:15 15:58 BUN 9 10 Creatinine 0.6 0.7 Estimated GFR (MDRD) 149 125 Cultures 12/03/19 16:40 Nasal Wound Culture - Preliminary Monitoring plan: Daily serum creatinine Next trough due prior to maintenance dose #: 5 Next trough due (date/time): 12/04 AT 0830 Areas for additional monitoring: IV to PO when appropriate, Therapy de- escalation based on culture results
[2019-12-04] MEDS: SODIUM CHLORIDE FLUSH 0.9% 10 ML SYRINGE IVP PRN (12:46)
[2019-12-04 16:18] LABS: MUDS CUTOFF CONCENTRATIONS CUTOFF CONC BELOW:
[2019-12-04] MEDS: oxyCODONE 5 MG TABLET PO PRN ×2 (16:20→20:44)
[2019-12-04 16:31] LABS: AMPHETAMINE SCREEN,URINE POSITIVE (NEGATIVE); BENZODIAZEPINES SCREEN, URINE NEGATIVE (NEGATIVE); COCAINE SCREEN URINE NEGATIVE (NEGATIVE); METHADONE SCREEN, URINE NEGATIVE (NEGATIVE); METHAMPHETAMINES SCREEN, URINE NEGATIVE (NEGATIVE); OPIATE SCREEN, URINE POSITIVE (NEGATIVE); OXYCODONE SCREEN, URINE NEGATIVE (NEGATIVE); PROPOXYPHENE SCREEN, URINE NEGATIVE (NEGATIVE); TRICYCLIC ANTIDEPRESSANT,URINE NEGATIVE (NEGATIVE)
[2019-12-05] MEDS: SODIUM CHLORIDE FLUSH 0.9% 10 ML SYRINGE IVP SCH ×2 (00:43→10:15)
[2019-12-05] MEDS: AMPICILLIN/SULBACTAM 3 GM in SODIUM CHLORIDE 0.9% MINIBAG 100 ML IV SCH ×3 (00:43→12:40)
[2019-12-05] MEDS: oxyCODONE 5 MG TABLET PO PRN ×3 (00:49→10:16)
[2019-12-05] MEDS: VANCOMYCIN INJ 1 GM, VANCOMYCIN INJ 250 MG in SODIUM CHLORIDE 0.9% 250 ML IV SCH ×2 (01:18→10:39)
[2019-12-05 05:24] LABS: BASOPHILS % (AUTO) 0.3 %; EOSINOPHILS % (AUTO) 0.6 %; HGB - HEMOGLOBIN 13.5 g/dL (14.0-18.0); LYMPHOCYTES # (AUTO) 1.6 10^3/uL (1.5-3.5); LYMPHOCYTES % (AUTO) 22.7 %; MEAN CORPUSCULAR HEMOGLOBIN 30.4 pg (27.0-31.0); MEAN CORPUSCULAR HGB CONC 33.8 g/dL (32.0-36.0); MEAN CORPUSCULAR VOLUME 89.9 fL (80.0-94.0); MEAN PLATELET VOLUME 10.4 fL (7.4-11.4); MONOCYTES # (AUTO) 0.4 10^3/uL (0.0-1.0); MONOCYTES % (AUTO) 6.4 %; NEUTROPHILS # (AUTO) 4.8 10^3/uL (1.5-6.6); NEUTROPHILS % (AUTO) 69.9 %; PLT - PLATELET COUNT 240 10^3/uL (130-450); RED BLOOD COUNT 4.44 10^6/uL (4.70-6.10); RED CELL DISTRIBUTION WIDTH 12.2 % (12.0-15.0); WHITE BLOOD COUNT 6.9 x10^3/uL (4.8-10.8)
[2019-12-05 05:45] LABS: CALCIUM 8.4 mg/dL (8.5-10.3); CREATININE 0.7 mg/dL (0.6-1.2); CRP - C-REACTIVE PROTEIN 5.9 mg/dL (0-1.0)
[2019-12-05] MEDS ORDERED: POTASSIUM CHLORIDE 20 MEQ TABLET PO ONE (07:45)
[2019-12-05] MEDS: ethyl alcohoL 62% SWAB AMPULE NAS SCH (10:15)
[2019-12-05] MEDS: FAMOTIDINE 20 MG TABLET PO SCH (10:15)
[2019-12-05] MEDS: PATIENT OWN CONTROLLED 1 EACH BC SCH (10:16)
[2019-12-05 10:24] LABS: VANCOMYCIN,TROUGH 12.5 ug/mL (10.0-20.0)
[2019-12-05] MEDS: D5NS W/20 MEQ KCL 1,000 ML IV SCH (10:37)
[2019-12-05] MEDS: SODIUM CHLORIDE FLUSH 0.9% 10 ML SYRINGE IVP PRN (10:41)
[2019-12-05 15:41] VITALS: BP 145/99
--- NOTE | 2019-12-05 15:42 | DISCHARGE SUMMARY ---
Discharge Summary Admit Date: 12/03/19 Discharge Date: 12/05/19 Discharging Provider: Benigno Gilmore Condition at Discharge: Stable Discharge Disposition: Against Medical Advice Discharge Facility Name: home - DIAGNOSES Discharge Diagnoses with Status of Each Condition: (1) Facial cellulitis great improved. There is no erythema and significantly reduced swelling. WBC is normal, patient has no fever or chills. Patient was prescribed Bactrim, patient signed AMA and left hospital (2) Nasal abscess resolved. Patient had I&D done in the ER. Patient has no pain and no swelling or no erythema. WBC is normal, patient has no fever or chills. Wound culture show staph aureus, but sensitivity study is still pending, patient is prescribed Bactrim. patient signed AMA (3) Drug abuse Patient and AMA (4)AMA Patient today state he cannot wait to be d/c on tomorrow and have to leave toda y. But pt's wound culture and sensitivity study is still pending. we have to have sensitivity study for us to choose the correct antibiotics for his d/c, special Wound culture show staph aureus. We explained the importance he stay here overnight, then we have sensitivity study and he can be discharged on tomorrow. He clearly discussed the risk and even could be happen if he leave by the AMA and left hospital on today. Patient understood and he continue signed AMA and left the hospital. - HPI History of Present Illness: Patient was admitted for right nose abscess And facial cellulitis. Patient has history of drug abuse. Patient had I&D done in the ER. Patient also had drainage culture done in the ER. Patient was continually treated with antibiotics Unasyn and vancomycin. - HOSPITAL COURSE Hospital Course: Patient was admitted for right nose abscess and facial cellulitis. Patient had I/D for right nose done in the ER. Drainage was done for culture, culture show patient had staph aureus. Patient was treated with antibiotics Unasyn and vancomycin. Patient facial swelling was resolved, nose swelling is significantly reduced, erythema is significantly reduced. Patient has no fever or chilling in the hospital, patient WBC is normal. Patient drainage culture for bacteria sensitivity study is not a come back yet, Because the patient has staph aureus infection,it is important for sensitivity study and choose correct antibiotic. but the patient request leave and was willing to sign the AMA, patient was explained the risk including medical and financial risks for signed AMA. Patient is alert orientated plus 4. Patient signed AMA and left the hospital - ALLERGIES Allergies/Adverse Reactions: Allergies Allergy/AdvReac Type Severity Reaction Status Date / Time No Known Drug Allergies Allergy Verified 08/20/19 18:35 - MEDICATIONS Home Medications: Ambulatory Orders Medication Instructions Recorded Confirmed Sulfamethox/Trimeth 800/160 1 each PO BID #14 tablet 12/05/19 [Bactrim Ds 800/160] - PHYSICAL EXAM AT DISCHARGE Physical Exam Other/Comments: Patient left with AMA, I cannot have the time to do the physical examination for him before he left - LABS Result Diagrams: 12/05/19 05:16 12/05/19 05:16 - FOLLOW UP Follow Up: followup with PCP, advise pt quit drug abuse - TIME SPENT Time Spent in Discharge (Minutes): 30
== END 2019-12-05 15:44 | disposition left against medical advice (07) | DRG 155 ==
LOC: ED 14:33 → MS2 17:03 → ED 17:36
PROVIDERS: ADMIT Internal Medicine; ATTEND Nurse Practitioner Gerontology
DX: J34.0 Abscess, furuncle and carbuncle of nose (principal); L03.211 Cellulitis of face; B95.62 Methicillin resistant Staphylococcus aureus infection as the cause of diseases classified elsewhere; F15.11 Other stimulant abuse, in remission; F11.11 Opioid abuse, in remission; Z53.29 Procedure and treatment not carried out because of patient's decision for other reasons; F17.210 Nicotine dependence, cigarettes, uncomplicated; Z72.89 Other problems related to lifestyle
CPT/HCPCS: 30000; 36415; 80048; 80053; 80202; 80306; 83605; 83690; 85025; 85610; 86140; 87040; 87070; 87077; 87181; 87205; 87640; 96374; 99152; 99284; 99285; A9270; J1170; J3370; 94770

== ENCOUNTER 2020-10-02 17:42 | Emergency (ER) | payer MEDICAID ==
--- OUTSIDE RECORDS SUMMARY | 2020-10-02 18:30 | EXTERNAL MEDICAL SUMMARY RPT | Continuity of Care Document ---
:1980 Demographics Phone Unavailable Preferred Language Unknown Marital Status Unknown Scientology Affiliation Unknown Race Unknown Ethnic Group Unknown Author Organization [place] [facility] Address [address] [place] [address] Phone Social History date description facility [phone]
[2020-10-02] MEDS ORDERED: KETOROLAC 30 MG/ML VIAL IM STA (18:49)
--- NOTE | 2020-10-02 19:58 | XRAY Report ---
PROCEDURE: Hip w/Pelvis 2-3V RT INDICATIONS: hip pain s/p fall TECHNIQUE: AP pelvis with lateral view of the right hip. COMPARISON: None. FINDINGS: Bones: No acute fractures or dislocations. Pelvic ring appears intact. No suspicious bony lesions. Mild degenerative spurring is seen at the lateral acetabula bilaterally. Soft tissues: The visualized bowel gas pattern is normal. No suspicious soft tissue calcifications. IMPRESSION: No acute osseous abnormality. If there is clinical concern or persistent symptoms, addit ional imaging such as repeat radiographs or advanced imaging (e.g. CT, MRI) may be helpful for furthe r evaluation. Reviewed by: Nav Fuentes MD on 10/02/2020 7:57 PM PDT Approved by: Nav Fuentes MD on 10/02/2020 7:57 PM PDT Station ID: [id number]
--- NOTE | 2020-10-02 20:00 | XRAY Report ---
PROCEDURE: Knee 2 View RT INDICATIONS: knee pain s/p fall TECHNIQUE: 2 views of the right knee were acquired. COMPARISON: None. FINDINGS: Bones: No acute fractures or dislocations. No suspicious bony lesions. Soft tissues: No joint effusion. No suspicious soft tissue calcifications. IMPRESSION: No acute osseous abnormality. If there is clinical concern or persistent symptoms, addit ional imaging such as repeat radiographs or advanced imaging (e.g. CT, MRI) may be helpful for furthe r evaluation. Reviewed by: Nav Fuentes MD on 10/02/2020 7:59 PM PDT Approved by: Nav Fuentes MD on 10/02/2020 7:59 PM PDT Station ID: [id number]
[2020-10-02 20:05] VITALS: BP 123/92
[2020-10-02] MEDS ORDERED: methocarbamoL 500 MG TABLET PO STA (21:39)
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
== END 2020-10-02 21:59 | disposition home or self-care (01) ==
LOC: ED 17:42
DX: S39.012A Strain of muscle, fascia and tendon of lower back, initial encounter (principal); V00.841A Fall from standing electric scooter, initial encounter; Y93.I9 Activity, other involving external motion; M25.561 Pain in right knee; M25.551 Pain in right hip; F17.200 Nicotine dependence, unspecified, uncomplicated
CPT/HCPCS: 73502; 73560; 96372; 99284; A9270

== ENCOUNTER 2020-12-22 14:08 | Emergency (ER) | payer MEDICAID ==
[2020-12-22 14:32] VITALS: BP 110/90
--- NOTE | 2020-12-22 17:33 | ED Physician Documentation ---
PD HPI HEENT - Stated complaint Stated Complaint: PAINFUL NOSE - Chief complaint Chief Complaint: Heent - History obtained from History obtained from: Patient - History of Present Illness Timing - onset: How many days ago (2-3) Timing - duration: Days (2-3) Timing - details: Gradual onset, Still present Location: Nose (edge of nasal passage right side.) Associated symptoms: Facial swelling (had similar about 6 months ago or more and started this way, but let it get much bigger and needed incision/drainage and IV abx with hospital stay for 2-3 days. Culture was MRSA. He states this is feeling similar to the early onset of prior episode so coming in earlier.). No: Fever, Congestion Similar symptoms before: Diagnosis (MRSA nasal tissue infection with subsequent abscess.) Review of Systems Constitutional: denies: Fever, Chills Nose: denies: Congestion, Sinus pressure / pain Throat: denies: Dental pain / toothache, Oral lesions / sores Skin: reports: Lesions (nasal rim with some swelling now to upper lip.). denies: Rash PD PAST MEDICAL HISTORY - Past Medical History Cardiovascular: None Endocrine/Autoimmune: None - Past Surgical History Past Surgical History: Yes - Present Medications Home Medications: Ambulatory Orders Medication Instructions Recorded Confirmed Sulfamethox/Trimeth 800/160 1 each PO BID #14 tablet 12/05/19 [Bactrim Ds 800/160] Ketorolac [Toradol] 10 mg PO Q6H PRN #30 tablet 10/02/20 Doxycycline Hyclate 100 mg PO BID #14 12/22/20 Mupirocin Calcium [Mupirocin] 1 applic TP TID #15 gm 12/22/20 - Allergies Allergies/Adverse Reactions: Allergies Allergy/AdvReac Type Severity Reaction Status Date / Time No Known Drug Allergies Allergy Verified 12/22/20 14:28 - Social History Does the pt smoke?: Yes Smoking Status: Current every day smoker Does the pt drink ETOH?: Yes Does the pt have substance abuse?: No - Immunizations Immunizations are current?: Yes - POLST Patient has POLST: No POLST Status: Full Code PD ED PE NORMAL - Vitals Vital signs reviewed: Yes - General General: Alert and oriented X 3, No acute distress, Well developed/nourished - HEENT HEENT: PERRL, EOMI, Ears normal, Moist mucous membranes, Pharynx benign, Other (right nasal opening with redness, tender and some swelling at rim of nostril. Higher in nasal passage appears normal. There is mild swelling/redness to adjacent upper lip but no fluctuance. No draiange noted. ) - Neck Neck: Supple, no meningeal sign, No adenopathy Results - Vitals Vitals: Vital Signs - 24 hr 12/22/20 14:28 Temperature 36.5 C Heart Rate 86 Respiratory 16 Rate Blood Pressure 110/90 H O2 Saturation 99 Oxygen O2 Source Room air PD MEDICAL DECISION MAKING - ED course Complexity details: reviewed old records, considered differential (redness and swelling without fluctuance in rim of nostril. No abscess per se. Mild swelling to upper lip at edge of the nasal rim fold. ), d/w patient Departure - Departure Disposition: 01 Home, Self Care Clinical Impression: Infected lesion in nose Condition: Stable Record reviewed to determine appropriate education?: Yes Instructions: ED Skin Infec MRSA Suspect Conf Prescriptions: Doxycycline Hyclate 100 mg PO BID #14 Mupirocin Calcium [Mupirocin] 1 applic TP TID #15 gm Comments: The previous infection was methicillin-resistant staph aureus. This looks likely to be a similar cause. We will treat it with antibiotics directed at that. Clean with some saline and you could use some dilute peroxide to the nasal rim to 3 times daily. Then apply mupirocin antibiotic ointment. Also take doxycycline oral antibiotic twice daily for a week. I would anticipate improvement over the next several days and resolved by 3 to 5 days. Continue some ibuprofen 2-3 times daily. To that add Tylenol every 4 hours if needed for pain. Discharge Date/Time: 12/22/20 18:12
[2020-12-22] MEDS ORDERED: ethyl alcohoL 62% SWAB AMPULE NAS STA (17:46)
[2020-12-22] MEDS ORDERED: HYDROcod/ACETAM 5/325 MG TABLET PO STA (17:46)
[2020-12-22] MEDS ORDERED: MUPIROCIN 2% OINT 1 GM NAS STA (17:46)
[2020-12-22] MEDS ORDERED: DOXYCYCLINE 100 MG TABLET PO STA (17:46)
== END 2020-12-22 18:12 | disposition home or self-care (01) ==
LOC: ED 14:08
DX: J34.89 Other specified disorders of nose and nasal sinuses (principal); F17.200 Nicotine dependence, unspecified, uncomplicated
CPT/HCPCS: 99282; 99283; A9270

== ENCOUNTER 2021-02-03 17:00 | Outpatient (CLI) | payer MEDICAID | END 2021-02-03 17:01 | disposition critical access hospital (66) | LOC: EMS 17:00 | DX: R51.9 Headache, unspecified (principal); R06.02 Shortness of breath; R05 Cough; R43.8 Other disturbances of smell and taste | CPT/HCPCS: A0425; A0429; A0999 ==

== ENCOUNTER 2021-02-03 17:21 | Emergency (ER) | payer MEDICAID ==
[2021-02-03] MEDS ORDERED: SODIUM CHLORIDE 0.9% 1,000 ML IV STA (17:29)
[2021-02-03] MEDS ORDERED: HYDROmorphone 1 MG/ML CARPUJECT IVP STA (17:29)
[2021-02-03 17:30] VITALS: BP 133/99
--- NOTE | 2021-02-03 17:30 | ED Physician Documentation ---
History of Present Illness - Stated complaint Stated Complaint: WEAKNESS - Additonal information Additional information: 40-year-old male presents to the emergency department with after his mom called 911 because he has been in his room for the last for 5 days complaining of feve rs, chills myalgias and headache. He has not left his room. There is been no vomiting or diarrhea. He has not been tested for COVID-19 but his mom is concerned that he could have it. Patient is not vaccinated for COVID-19. He reports that if he was COVID-19 positive he would not accept antibody infusion as he does not trust the government. He denies any history of hypertension or diabetes. Denies pulmonary disorder such as asthma or COPD. He has not taken anything over the last 4 to 5 days to treat his symptoms. Review of Systems Constitutional: reports: Fever, Chills, Myalgias, Fatigue Eyes: reports: Reviewed and negative Ears: reports: Reviewed and negative Nose: denies: Rhinorrhea / runny nose, Congestion Throat: reports: Other (Change in taste but no loss of taste) Cardiac: denies: Chest pain / pressure, Palpitations Respiratory: reports: Cough. denies: Dyspnea GI: denies: Abdominal Pain, Nausea, Vomiting, Diarrhea : reports: Reviewed and negative Skin: reports: Reviewed and negative Musculoskeletal: reports: Reviewed and negative Neurologic: reports: Headache. denies: Focal weakness, Numbness, Difficulty speaking, Seizure, Confused, Altered mental status PD PAST MEDICAL HISTORY - Past Medical History Cardiovascular: None Endocrine/Autoimmune: None - Past Surgical History Past Surgical History: Yes - Present Medications Home Medications: Ambulatory Orders Medication Instructions Recorded Confirmed Sulfamethox/Trimeth 800/160 1 each PO BID #14 tablet 12/05/19 [Bactrim Ds 800/160] Ketorolac [Toradol] 10 mg PO Q6H PRN #30 tablet 10/02/20 Doxycycline Hyclate 100 mg PO BID #14 12/22/20 Mupirocin Calcium [Mupirocin] 1 applic TP TID #15 gm 12/22/20 - Allergies Allergies/Adverse Reactions: Allergies Allergy/AdvReac Type Severity Reaction Status Date / Time No Known Drug Allergies Allergy Verified 02/03/21 17:30 - Social History Does the pt smoke?: Yes Smoking Status: Current every day smoker Does the pt drink ETOH?: Yes Does the pt have substance abuse?: No - Immunizations Immunizations are current?: Yes - POLST Patient has POLST: No POLST Status: Full Code PD ED PE EXPANDED - General General: Alert, No acute distress - Neck Neck: Supple w/out meningeal sx. No: Brudzinki's, Kernig's, Adenopathy - Cardiac Cardiac: Regular Rate, Radial strong equal, Pedal strong equal, Cap refill < 2 sec. No: Murmur Present - Respiratory Respiratory: Clear to ausultation sania. No: Distress, Labored - Abdomen Abdomen: Normal Bowel sounds. No: Tender to palpation - Back Back: Normal exam - Derm Derm: Normal color, Warm and dry. No: Rash - Extremities Extremities: Normal. No: Deformity, Tenderness - Neuro Neuro: Alert and Oriented X 3, CNII-XII intact - GCS Eye Opening: Spontaneous Motor: Obeys Commands Verbal: Oriented Total: 15 Results - Vitals Vitals: Vital Signs - 24 hr 02/03/21 17:27 Temperature 96.7 C H Heart Rate 88 Respiratory 16 Rate Blood Pressure 133/99 H O2 Saturation 98 Oxygen O2 Source Room air - Labs Labs: Laboratory Tests 02/03/21 02/03/21 02/03/21 17:32 17:40 17:40 WBC 2.1 L RBC 5.19 Hgb 16.2 Hct 48.3 MCV 93.1 MCH 31.2 H MCHC 33.5 RDW 12.4 Plt Count 159 MPV 10.9 Neut # (Auto) COLLECTIONS CURATOR Lymph # (Auto) COLLECTIONS CURATOR Collin # (Auto) COLLECTIONS CURATOR Eos # (Auto) COLLECTIONS CURATOR Baso # (Auto) COLLECTIONS CURATOR Absolute Nucleated RBC COLLECTIONS CURATOR Band Neuts % (Manual) Not Reportable Abnorm Lymph % (Manual) Not Reportable Nucleated RBC % COLLECTIONS CURATOR Neutrophils # (Manual) Not Reportable Lymphocytes # (Manual) Not Reportable Monocytes # (Manual) Not Reportable Eosinophils # (Manual) Not Reportable Basophils # (Manual) Not Reportable Differential Comment MANUAL=AUTO DIFF Manual Slide Review COLLECTIONS CURATOR Platelet Estimate NORMAL (130-450,000) Platelet Morphology NORMAL APPEARANCE RBC Morph Micro Appear NORMAL APPEARANCE Sodium 137 Potassium 4.1 Chloride 100 L Carbon Dioxide 28 Anion Gap 9.0 BUN 10 Creatinine 0.6 Estimated GFR (MDRD) 148 Glucose 134 H Calcium 8.2 L Total Bilirubin 0.4 AST 23 ALT 27 Alkaline Phosphatase 58 Total Protein 7.2 Albumin 3.7 Globulin 3.5 Albumin/Globulin Ratio 1.1 Lipase 25 Nasal Adenovirus (PCR) NOT DETECTED Nasal B. parapertussis DNA (PCR) NOT DETECTED Nasal Coronavir 229E PCR NOT DETECTED Nasal Coronavir HKU1 PCR NOT DETECTED Nasal Coronavir NL63 PCR NOT DETECTED Nasal Coronavir OC43 PCR NOT DETECTED Nasal Enterovir/Rhinovir PCR NOT DETECTED Nasal Influenza B PCR NOT DETECTED Nasal Influenza A PCR NOT DETECTED Nasal Parainfluen 1 PCR NOT DETECTED Nasal Parainfluen 2 PCR NOT DETECTED Nasal Parainfluen 3 PCR NOT DETECTED Nasal Parainfluen 4 PCR NOT DETECTED Nasal RSV (PCR) NOT DETECTED Nasal B.pertussis DNA PCR NOT DETECTED Nasal C.pneumoniae (PCR) NOT DETECTED Catrahco Human Metapneumo PCR NOT DETECTED Nasal M.pneumoniae (PCR) NOT DETECTED Nasal SARS-CoV-2 (PCR) DETECTED A - Rads (name of study) CXR Radiology: Final report received (No acute cardiopulmonary pathology.) PD MEDICAL DECISION MAKING - ED course Complexity details: reviewed results, considered differential, d/w patient ED course: 40-year-old male was brought to the emergency department for evaluation of 5 days cough congestion myalgias fatigue and headache as well as some change in taste and smell. He is not vaccinated for COVID-19. He did screen positive for COVID-19 today. His chest x-ray does not show any focal opacities or pneumonia. Screening labs do show a mild neutropenia as is typically seen with COVID-19 infections. This gentleman was offered Mab therapy but he has declined it at this time. He is not hypoxic and has no respiratory distress. At this time no indication for hospitalization. Patient was notified that if at any point he feels the symptoms are worsening he can return to the emergency department he was told that MAB therapy can be considered within the first 10 days of symptoms he is otherwise worsening Departure - Departure Disposition: 01 Home, Self Care Clinical Impression: COVID-19 Condition: Stable Record reviewed to determine appropriate education?: Yes Comments: Rock hardy are seen in the ER today for 5 days of fevers chills myalgias headache and some change in taste. You have tested positive for COVID-19. Your chest x-ray does not show any findings of pneumonia. Your vital signs here have been rather stable and there are no deficiencies in your oxygen levels. You were offered antibody treatment but declined this today. You are a candidate for antibody therapy within the first 10 days of symptoms. If you do change your mind you can return here for further treatment and evaluation. If at any point you develop worsening symptoms, have difficulty breathing of discoloration of your lips or face then please return immediately to the emergency department. I do encourage you to get the COVID-19 vaccination which you are eligible for you can get it approximately 3 months after a COVID-19 infection.
[2021-02-03 17:59] LABS: BASOPHILS % (AUTO) 0.5 %; HCT - HEMATOCRIT 48.3 % (42.0-52.0); HGB - HEMOGLOBIN 16.2 g/dL (14.0-18.0); LYMPHOCYTES % (AUTO) 14.2 %; MEAN CORPUSCULAR HEMOGLOBIN 31.2 pg (27.0-31.0); MEAN CORPUSCULAR HGB CONC 33.5 g/dL (32.0-36.0); MEAN CORPUSCULAR VOLUME 93.1 fL (80.0-94.0); MEAN PLATELET VOLUME 10.9 fL (7.4-11.4); MONOCYTES % (AUTO) 6.6 %; NEUTROPHILS % (AUTO) 78.2 %; PLT - PLATELET COUNT 159 10^3/uL (130-450); RED BLOOD COUNT 5.19 10^6/uL (4.70-6.10); RED CELL DISTRIBUTION WIDTH 12.4 % (12.0-15.0); WHITE BLOOD COUNT 2.1 x10^3/uL (4.8-10.8)
--- NOTE | 2021-02-03 18:10 | XRAY Report ---
PROCEDURE: Chest 1 View X-Ray INDICATIONS: chest pain TECHNIQUE: One view of the chest was acquired. COMPARISON: Chest radiographs 07/22/2019 FINDINGS: Surgical changes and devices: None. Lungs and pleura: No pleural effusions or pneumothorax. Lungs are clear. Mediastinum: Mediastinal contours appear normal. Heart size is normal. Bones and chest wall: No suspicious bony lesions. Overlying soft tissues appear unremarkable. IMPRESSION: No acute cardiopulmonary abnormality. Reviewed by: Nav Fuentes MD on 02/03/2021 6:08 PM PDT Approved by: Nav Fuentes MD on 02/03/2021 6:08 PM PDT Station ID: [id number]
[2021-02-03 18:11] LABS: ALBUMIN 3.7 g/dL (3.2-5.5); ALBUMIN/GLOBULIN RATIO 1.1 (1.0-2.2); BILIRUBIN,TOTAL 0.4 mg/dL (0.2-1.0); CALCIUM 8.2 mg/dL (8.5-10.3); CREATININE 0.6 mg/dL (0.6-1.2); POTASSIUM 4.1 mmol/L (3.5-5.0); TOTAL PROTEIN 7.2 g/dL (6.7-8.2)
[2021-02-03 18:41] LABS: B. PARAPERTUSSIS- RESP PCR PAN NOT DETECTED; B. PERTUSSIS- RESP PCR PANEL NOT DETECTED; C. PNEUMONIAE- RESP PCR PANEL NOT DETECTED; CORONAVIRUS 229E-RESP PCR NOT DETECTED; CORONAVIRUS HKU1-RESP PCR NOT DETECTED; CORONAVIRUS NL63-RESP PCR NOT DETECTED; CORONAVIRUS OC43-RESP PCR NOT DETECTED; HUMAN METAPNEUMOVIRUS NOT DETECTED; INFLUENZA A- RESP PCR PANEL NOT DETECTED; INFLUENZA B - RESP PCR PANEL NOT DETECTED; M. PNEUMONIAE- RESP PCR PANEL NOT DETECTED; PARAINFLUENZA VIRUS 1 NOT DETECTED; PARAINFLUENZA VIRUS 2 NOT DETECTED; PARAINFLUENZA VIRUS 3 NOT DETECTED; PARAINFLUENZA VIRUS 4 NOT DETECTED; RHINOVIRUS/ENTEROVIRUS NOT DETECTED; RSV- RESP PCR PANEL NOT DETECTED; SARS-CoV-2 -RESP PCR PANEL DETECTED
[2021-02-03 18:50] LABS: PLATELET ESTIMATE, MANUAL NORMAL (130-450,000) (NORMAL); PLATELET MORPHOLOGY NORMAL APPEARANCE (NORMAL); RBC MORPHOLOGY (MULTIPLE) NORMAL APPEARANCE (NORMAL)
[2021-02-03 18:51] LABS: DIFFERENTIAL COMMENT MANUAL=AUTO DIFF
== END 2021-02-03 20:54 | disposition home or self-care (01) ==
LOC: EDUNIT# → ED 17:21
DX: U07.1 COVID-19 (principal); F17.200 Nicotine dependence, unspecified, uncomplicated
CPT/HCPCS: 0202U; 36415; 71045; 80053; 83690; 85025; 96361; 96374; 99284; J1170

== ENCOUNTER 2022-02-28 04:39 | Outpatient (CLI) | payer MEDICAID | END 2022-02-28 04:40 | disposition critical access hospital (66) | LOC: EMS 04:39 | DX: T23.252A Burn of second degree of left palm, initial encounter (principal); T23.251A Burn of second degree of right palm, initial encounter; T23.042A Burn of unspecified degree of multiple left fingers (nail), including thumb, initial encounter; T23.041A Burn of unspecified degree of multiple right fingers (nail), including thumb, initial encounter; X08.8XXA Exposure to other specified smoke, fire and flames, initial encounter; Y92.039 Unspecified place in apartment as the place of occurrence of the external cause | CPT/HCPCS: A0425; A0427; A0999 ==

== ENCOUNTER 2022-02-28 04:58 | Emergency (ER) | payer MEDICAID ==
[2022-02-28 05:10] VITALS: BP 146/113
[2022-02-28] MEDS ORDERED: KETOROLAC 30 MG/ML VIAL IVP STA (07:26)
[2022-02-28] MEDS ORDERED: BACITRACIN ZINC OINT 1 PACKET TOP STA (07:26)
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
== END 2022-02-28 08:31 | disposition home or self-care (01) ==
LOC: EDUNIT# → ED 04:58
DX: T23.251A Burn of second degree of right palm, initial encounter (principal); T23.052A Burn of unspecified degree of left palm, initial encounter; F17.200 Nicotine dependence, unspecified, uncomplicated
CPT/HCPCS: 96374; 99282; 99283; A9270

== ENCOUNTER 2023-10-09 21:45 | Emergency (ER) | payer SELFPAY ==
[2023-10-09 21:58] VITALS: BP 139/87; O2SAT 98
--- NOTE | 2023-10-09 22:05 | ED Physician Documentation ---
History of Present Illness - Stated complaint Stated Complaint: R LEG PX - Chief complaint Chief Complaint: Ext Problem - Additonal information Additional information: Patient 43-year-old male presenting the emergency department chief complaint right leg swelling. Symptoms ongoing x 1-1/2-week. Swelling around the right calf with pain, tenderness as well as an area of swelling that he notes in his upper right thigh. Reports fatigue. Denies fevers chills. Denies nausea vomiting. Denies known MRSA infection. 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 Denies previous blood clots. PD PAST MEDICAL HISTORY - Past Medical History Past Medical History: No Cardiovascular: None Endocrine/Autoimmune: None - Past Surgical History Past Surgical History: Yes - Present Medications Home Medications: Ambulatory Orders Medication Instructions Recorded Confirmed Sulfamethox/Trimeth 800/160 1 each PO BID #14 tablet 12/05/19 [Bactrim Ds 800/160] Ketorolac [Toradol] 10 mg PO Q6H PRN #30 tablet 10/02/20 Doxycycline Hyclate 100 mg PO BID #14 12/22/20 Mupirocin Calcium [Mupirocin] 1 applic TP TID #15 gm 12/22/20 Bacitracin Zinc Oint 1 applic TOP BID #1 each 02/28/22 Ibuprofen [Motrin] 800 mg PO Q8H PRN #30 tablet 02/28/22 - Allergies Allergies/Adverse Reactions: Allergies Allergy/AdvReac Type Severity Reaction Status Date / Time No Known Drug Allergies Allergy Verified 10/09/23 21:48 - Social History Does the pt smoke?: Yes Smoking Status: Current every day smoker Does the pt drink ETOH?: No Does the pt have substance abuse?: Yes - Immunizations Immunizations are current?: Yes - POLST Patient has POLST: No POLST Status: Full Code Results - Vitals Vitals: Vital Signs - 24 hr 10/09/23 21:48 Temperature 36.8 C Heart Rate 100 Respiratory 16 Rate Blood Pressure 139/87 H O2 Saturation 98 Oxygen O2 Source Room air - Labs Labs: Laboratory Tests 10/09/23 10/09/23 10/09/23 22:21 22:21 22:21 WBC 12.3 H RBC 4.41 L Hgb 13.0 L Hct 40.8 L MCV 92.5 MCH 29.5 MCHC 31.9 L RDW 12.6 Plt Count 362 MPV 10.3 Neut # (Auto) 10.4 H Lymph # (Auto) 1.3 L Norton # (Auto) 0.4 Eos # (Auto) 0.1 Baso # (Auto) 0.0 Absolute Nucleated RBC 0.00 Nucleated RBC % 0.0 D-Dimer 378.3 H Sodium 134 L Potassium 3.6 Chloride 98 L Carbon Dioxide 30 Anion Gap 6.0 BUN 9 Creatinine 0.8 Estimated GFR (MDRD) 105 Glucose 133 H Lactic Acid Calcium 9.3 Total Bilirubin 0.3 AST 10 ALT 12 Alkaline Phosphatase 85 Total Protein 7.8 Albumin 3.6 Globulin 4.2 Albumin/Globulin Ratio 0.9 L Lipase 11 10/09/23 22:21 WBC RBC Hgb Hct MCV MCH MCHC RDW Plt Count MPV Neut # (Auto) Lymph # (Auto) Norton # (Auto) Eos # (Auto) Baso # (Auto) Absolute Nucleated RBC Nucleated RBC % D-Dimer Sodium Potassium Chloride Carbon Dioxide Anion Gap BUN Creatinine Estimated GFR (MDRD) Glucose Lactic Acid 1.5 Calcium Total Bilirubin AST ALT Alkaline Phosphatase Total Protein Albumin Globulin Albumin/Globulin Ratio Lipase PD Medical Decision Making - ED course Complexity details: reviewed results, re-evaluated patient, considered differential, d/w patient ED course: Patient 43-year-old male presenting the emergency department with swelling and erythema to right leg. Arrives afebrile with low-level tachycardia. Labs ordered including blood cultures, lactic. Patient has moderate leukocytosis but no other indication systemic inflammatory response. Is otherwise very well-appearing. Patient presents with significant erythema and induration to the right lower extremity as well as a smaller area of erythema and induration in the right medial upper thigh. [id number] ultrasonography is performed and there is no drainable fluid collection noted either in the lower extremity or in the upper thigh. Patient does have mild elevation in D-dimer. Ultrasonography for formal DVT study is unavailable. Discussed all options with patient.Patient was offered hospitalization for treatment of his cellulitis which he declined. In lieu of this we will discharge on oral antibiotic therapy, Keflex and Bactrim. Will give dose Lovenox with instructions for return tomorrow forReevaluation in the ED and right lower extremity ultrasound. Discussed return precautions including strict return precautions for new or worsening symptoms, signs of spreading infection or failure of improvement in symptoms within 72 hours onset of antibiotics prior to discharge. Departure - Departure Disposition: 01 Home, Self Care Clinical Impression: Cellulitis of thigh, Elevated d-dimer Cellulitis of leg Qualifiers: Laterality: right Qualified Code(s): L03.115 - Cellulitis of right lower limb Instructions: Cellulitis Dc Comments: Thank you for allowing us to care for you today at [facility]. Today in the emergency department you were evaluated for any possible dangerous or life-threatening medical emergency. The test in the emergency department today did show an elevated white blood cell count which is a marker of inflammation and infection. This is consistent with the clear signs of infection in your right calf as well as the small area of infection noted in your right upper thigh. The ultrasound we performed today did not show any drainable fluid collections however I do want you to monitor the area of both your leg and upper calf for any signs of increased swelling, pain which could represent the development of an abscess which will require incision and drainage. If this occurs it is important that you return to the emergency department. Your lab work today did show an elevated D-dimer, a lab test that indicates some risk for blood clot. I am sorry that we did not have the ability to perform the definitive ultrasound this evening however you were given a dose of Lovenox to treat empirically for any possible blood clot in your leg. It is important that you return to the emergency department tomorrow for reevaluation as well as ultrasonography of your lower extremity to rule out blood clot. If there is blood clot you will need further anticoagulating medications. I have written prescriptions for oral antibiotics to begin taking at home. Please use these as directed. Please finish the full course of antibiotics even if your symptoms resolve before they are done. Please increase your intake and fiber for fluids and natural probiotics while on antibiotics. If it anytime you have new or worsening symptoms such as fever, shaking chills, indications of spreading infection or if you are not noticing any improvement with antibiotics in the next 72 hours it is important that you return to the emergency department immediately for reevaluation. Forms: PCP List
[2023-10-09 22:27] LABS: BASOPHILS % (AUTO) 0.2 %; EOSINOPHILS # (AUTO) 0.1 10^3/uL (0.0-0.7); EOSINOPHILS % (AUTO) 0.9 %; HCT - HEMATOCRIT 40.8 % (42.0-52.0); LYMPHOCYTES # (AUTO) 1.3 10^3/uL (1.5-3.5); LYMPHOCYTES % (AUTO) 10.8 %; MEAN CORPUSCULAR HEMOGLOBIN 29.5 pg (27.0-31.0); MEAN CORPUSCULAR HGB CONC 31.9 g/dL (32.0-36.0); MEAN CORPUSCULAR VOLUME 92.5 fL (80.0-94.0); MEAN PLATELET VOLUME 10.3 fL (7.4-11.4); MONOCYTES # (AUTO) 0.4 10^3/uL (0.0-1.0); NEUTROPHILS # (AUTO) 10.4 10^3/uL (1.5-6.6); NEUTROPHILS % (AUTO) 84.8 %; PLT - PLATELET COUNT 362 10^3/uL (130-450); RED BLOOD COUNT 4.41 10^6/uL (4.70-6.10); RED CELL DISTRIBUTION WIDTH 12.6 % (12.0-15.0); WHITE BLOOD COUNT 12.3 x10^3/uL (4.8-10.8)
[2023-10-09] MEDS: SODIUM CHLORIDE 0.9% 1,000 ML IV STA (22:36)
[2023-10-09 22:46] LABS: ALBUMIN 3.6 g/dL (3.2-5.5); ALBUMIN/GLOBULIN RATIO 0.9 (1.0-2.2); BILIRUBIN,TOTAL 0.3 mg/dL (0.2-1.0); CALCIUM 9.3 mg/dL (8.5-10.3); CREATININE 0.8 mg/dL (0.6-1.3); POTASSIUM 3.6 mmol/L (3.5-4.5); TOTAL PROTEIN 7.8 g/dL (6.4-8.9)
[2023-10-09] MEDS ORDERED: cefTRIAXone 1 GM VIAL ONE (23:11)
[2023-10-09] MEDS: cefTRIAXone 1 GM in SODIUM CHLORIDE 0.9% MINIBAG 100 ML IV STA (23:13)
[2023-10-09] MEDS: ENOXAPARIN 100 MG/ML SYRINGE SUBQ STA (23:13)
[2023-10-09] MEDS: SULFAMETH/TRIMETH DS 800/160 MG TABLET PO STA (23:14)
== END 2023-10-10 00:09 | disposition home or self-care (01) ==
LOC: ED 21:45
DX: F17.200 Nicotine dependence, unspecified, uncomplicated (principal); L03.115 Cellulitis of right lower limb; R79.1 Abnormal coagulation profile
CPT/HCPCS: 36415; 80053; 83605; 83690; 85025; 85379; 87040; 96365; 96372; 99284; A9270; J1650